=== PATIENT | female | born 1955 | race Caucasian/White ===

== ENCOUNTER 2020-08-25 12:20 | Outpatient (REF) | payer MEDICARE, BC, OTHER, SELFPAY ==
--- NOTE | 2020-08-25 12:26 | MM_ITS ---
EXAMINATION: MM SCREENING DIGITAL BREAST TOMOSYNTHESIS, BILATERAL CLINICAL INFORMATION: Screening. Asymptomatic. The lifetime risk of breast cancer based on the Tyrer-Cuzick Model is 6%. COMPARISON: Mammography: 04/23/2019, 04/08/2018, 04/03/2017 TECHNIQUE: Digital breast tomosynthesis is performed in both the craniocaudal and mediolateral oblique views along with computer-aided detection (CAD). Synthesized 2D images are generated from the tomosynthesis. FINDINGS: There are scattered areas of fibroglandular density (ACR BI-RADS breast composition Category b). There are no significant masses, abnormal calcifications, or other abnormalities. Intramammary node mid upper outer left breast and small smooth nodule central inner left breast are stable from prior studies. No developing density. No significant changes from prior exams. MM/MM tomosynthesis screening BI IMPRESSION: No mammographic evidence of malignancy. ASSESSMENT: BI-RADS 2: Benign RECOMMENDATION: Routine annual mammography screening. This patient's information was entered into a reminder system with a target due date for their next mammogram.
== END 2020-08-25 12:21 | disposition home or self-care (01) ==
LOC: HO.MAMMO 12:20
PROVIDERS: PCP Internal Medicine; Visit Provider Internal Medicine
DX: Z12.31 Encounter for screening mammogram for malignant neoplasm of breast (principal)
CPT/HCPCS: 77063; 77067

== ENCOUNTER 2021-02-21 13:02 | Outpatient (REF) | payer MEDICARE, BC, OTHER, SELFPAY ==
[2021-02-21 14:38] LABS: Anion Gap 11 (12-20); Blood Urea Nitrogen 11 mg/dL (9-16); Calcium 9.8 mg/dL (8.4-10.2); Carbon Dioxide 30 mmol/L (22-29); Chloride 102 mmol/L (96-108); Cholesterol 219 mg/dL; Estimated Glomerular Filt Rate > 60; Glucose Fasting 102 mg/dL (60-99); HDL Cholesterol 66 mg/dL; LDL Cholesterol Calculated 130 mg/dl; Potassium 4.7 mmol/L (3.3-5.1); Sodium 138 mmol/L (135-145); Triglycerides 117 mg/dL
[2021-02-21 14:47] LABS: Vitamin D 25-OH Total 32.6 ng/mL (>30)
== END 2021-02-21 13:03 | disposition home or self-care (01) ==
LOC: HO.HMGCLDS 13:02
PROVIDERS: PCP Internal Medicine; Visit Provider Internal Medicine
DX: Z01.818 Encounter for other preprocedural examination (principal); I10 Essential (primary) hypertension; Z78.0 Asymptomatic menopausal state
CPT/HCPCS: 36415; 80048; 80061; 82306

== ENCOUNTER 2021-03-06 06:20 | Day surgery (SDC) | payer MEDICARE, BC, OTHER, SELFPAY ==
[2021-02-28 09:37] VITALS: BMI 26.8
--- NOTE | 2021-03-01 16:31 | MHC.SHP ---
Pre-Procedural Eval Section A The patient is an INPATIENT: No The History & Physical has been completed within 30 days and I have reviewed it.: Yes Section B Chief Complaint: Cataract Right Eye Allergies: Allergies Allergy/AdvReac Type Severity Reaction Status Date / Time No Known Allergies Allergy Verified 02/21/21 13:03 Plan Diagnosis/Plan: Unchanged I have reviewed the history and physical and performed a pertinent physical examination on my patient. No changes have occurred unless specified.
--- NOTE | 2021-03-03 09:15 | HO.ANESPROP2 ---
Documented by User: Augustina Pollock 03/03/21 09:15 HPI - Anesthesia Eval Consult details Narrative: Right Cataract Extraction IOL Insertion PCP cleared No prev cataract on record PMFSH Active Problems Active Problems: All Active Problems (Updated 02/28/21 @ 09:37 by Irene Fuller) Lumbago syndrome (Acute) Preoperative examination (Acute) Menopause (Acute) Essential hypertension (Acute) Past Medical History Medical History Arthritis COVID-19 vaccine administered Essential hypertension Hx of renal calculi Lumbago syndrome Menopause Preoperative examination Sleep apnea Surgical History Surgical History H/O colonoscopy Hx of appendectomy Hx of lithotripsy Social History Social History Alcohol intake: current Alcohol intake frequency: holidays/special occasions only Smoking Status: Never smoker Use of substances other than those prescribed or required for medical reasons: No Are you DNR?: No Advance Directives Information Provided: No Recently lost weight without trying: No Eating poorly because of decreased appetite: No Nutrition Risks: No Nutritional Risk Meds Allergies Allergy/AdvReac Type Severity Reaction Status Date / Time No Known Allergies Allergy Verified 03/06/21 06:56 Exam Exam Date and Time: March 03, 2021 0915 Height,Weight and Vital Signs: Height 5 ft 6 in Weight 75.296 kg Assessment and Plan Assessment Anesthesia Assessment: Chart Reviewed Documented by User: Manjit Yarbrough 03/06/21 08:04 PMFSH Past Medical History Medical History Arthritis COVID-19 vaccine administered Essential hypertension Hx of renal calculi Lumbago syndrome Menopause Preoperative examination Sleep apnea Surgical History Surgical History H/O colonoscopy Hx of appendectomy Hx of lithotripsy Social History Social History (Reviewed 03/06/21 @ 08:03 by Manjit Morales Alcohol intake: current Alcohol intake frequency: holidays/special occasions only Smoking Status: Never smoker Use of substances other than those prescribed or required for medical reasons: No Are you DNR?: No Advance Directives Information Provided: No Recently lost weight without trying: No Eating poorly because of decreased appetite: No Nutrition Risks: No Nutritional Risk Meds Allergies Allergy/AdvReac Type Severity Reaction Status Date / Time No Known Allergies Allergy Verified 03/06/21 06:56 Exam Airway Mallampati Class: III Partial: Lower
[2021-03-06 06:56] VITALS: BP 129/78; PULSE 68; RESP 16; TEMP 35.9; O2SAT 99
[2021-03-06] MEDS: Tetracaine HCl/PF 0.5% Oph Sol 4 ML DROPS 1 DROP EYE-RIGHT (07:04)
[2021-03-06] MEDS: Tropicamide 1 % Ophth Sol 3 ML BTL 1 DROP EYE-RIGHT ×3 (07:05→07:13)
[2021-03-06] MEDS: Phenylephrine HCL 2.5% Oph SoL 2 ML BOTTLE 1 DROP EYE-RIGHT ×3 (07:08→07:15)
[2021-03-06] MEDS: Lactated Ringers 500 ML 50 ML IV (07:17)
--- NOTE | 2021-03-06 08:09 | HO.PNOPHT ---
Ophthalmology Procedure Procedure Date of Service: 03/06/21 Ophthalmology Viscoelastic: Healon Duet Dual Pack Pro Ophthalmology Lenses: TECNIS [id number] (21.5) Procedure Notes: PREOPERATIVE DIAGNOSIS: Decreased visual acuity right eye secondary to cataract POSTOPERATIVE DIAGNOSIS: Same PROCEDURE: Right cataract extraction with intraocular lens insertion SURGEON: Lopez Layton M.D. ANESTHESIA: Topical/MAC ESTIMATED BLOOD LOSS: None COMPLICATIONS: None After obtaining informed consent, the patient was brought to the operating room suite and placed in the supine position. After adequate sedation per anesthesia, topical drops of Tetracaine were given to the right eye. The eye was then prepped and draped in the usual sterile fashion. The operating room microscope was then positioned over the operative eye and a lid speculum placed. A paracentesis was created. Viscoelastic was then instilled into the anterior chamber. A three plane incision was then created temporally, utilizing a 2.85 mm keratome. Capsulotomy forceps were then utilized to create a circular tear capsulotomy. Hydrodissection and hydrodelineation were carried out until adequate mobilization of the nucleus occurred. Phacoemulsification was then utilized to remove the dense central nucleus followed by removal of the cortical material utilizing the automated aspiration irrigation unit. Viscoelastic was instilled into the posterior capsular bag followed by placement of a posterior chamber intraocular lens without difficulty. The residual Viscoelastic was then removed utilizing the automated IA machine. The wound was checked and found to be watertight. The patient tolerated the procedure well and the lid speculum was removed. Intracameral injection of Vigamox 0.1 mL followed by a subtenon injection of Kenalog-40 0.2 mL were administered. The patient will be seen in the a.m.
[2021-03-06 08:32] VITALS: BP 134/79; PULSE 74; RESP 16; TEMP 36.3; O2SAT 100
== END 2021-03-06 08:51 | disposition home or self-care (01) ==
PROVIDERS: PCP Internal Medicine; Visit Provider Ophthalmology
PROC: (CPT 66985; principal; 2021-03-06 08:20)
DX: H25.11 Age-related nuclear cataract, right eye (principal); H52.4 Presbyopia; I10 Essential (primary) hypertension; G47.33 Obstructive sleep apnea (adult) (pediatric); Z79.899 Other long term (current) drug therapy; Z99.89 Dependence on other enabling machines and devices
CPT/HCPCS: 66984; J2250; J3010; J3300; V2632

== ENCOUNTER 2021-03-20 06:04 | Day surgery (SDC) | payer MEDICARE, BC, OTHER, SELFPAY ==
[2021-02-28 09:39] VITALS: BMI 26.8
--- NOTE | 2021-03-16 08:35 | MHC.SHP ---
Pre-Procedural Eval Section A The patient is an INPATIENT: No The History & Physical has been completed within 30 days and I have reviewed it.: Yes Section B Chief Complaint: Cataract Left Eye Allergies: Allergies Allergy/AdvReac Type Severity Reaction Status Date / Time No Known Allergies Allergy Verified 03/06/21 06:56 Plan Diagnosis/Plan: Unchanged I have reviewed the history and physical and performed a pertinent physical examination on my patient. No changes have occurred unless specified.
--- NOTE | 2021-03-17 08:44 | HO.ANESPROP2 ---
Documented by User: Augustina Pollock 03/17/21 08:46 HPI - Anesthesia Eval Consult details Narrative: 65yo F for Left Cataract Extraction IOL Insertion PCP cleared Right eye done 03/06/21: Midaz 1, Fent 50 PMFSH Active Problems Active Problems: All Active Problems (Updated 02/28/21 @ 09:37 by Irene Fuller) Lumbago syndrome (Acute) Preoperative examination (Acute) Menopause (Acute) Essential hypertension (Acute) Past Medical History Medical History Arthritis COVID-19 vaccine administered Essential hypertension Hx of renal calculi Lumbago syndrome Menopause Preoperative examination Sleep apnea Surgical History Surgical History H/O cataract extraction H/O colonoscopy Hx of appendectomy Hx of lithotripsy Social History Social History Alcohol intake: current Alcohol intake frequency: holidays/special occasions only Smoking Status: Never smoker Use of substances other than those prescribed or required for medical reasons: No Are you DNR?: No Advance Directives Information Provided: No Recently lost weight without trying: No Eating poorly because of decreased appetite: No Nutrition Risks: No Nutritional Risk Meds Allergies Allergy/AdvReac Type Severity Reaction Status Date / Time No Known Allergies Allergy Verified 03/06/21 06:56 Exam Exam Date and Time: March 17, 2021 0844 Height,Weight and Vital Signs: Height 5 ft 6 in Weight 75.296 kg Assessment and Plan Assessment Anesthesia Assessment: Chart Reviewed Documented by User: Madelyn Tyson 03/20/21 07:38 PMFSH Past Medical History Medical History Arthritis COVID-19 vaccine administered Essential hypertension Hx of renal calculi Lumbago syndrome Menopause Preoperative examination Sleep apnea Surgical History Surgical History H/O cataract extraction H/O colonoscopy Hx of appendectomy Hx of lithotripsy Social History Social History Alcohol intake: current Alcohol intake frequency: holidays/special occasions only Smoking Status: Never smoker Use of substances other than those prescribed or required for medical reasons: No Are you DNR?: No Advance Directives Information Provided: No Recently lost weight without trying: No Eating poorly because of decreased appetite: No Nutrition Risks: No Nutritional Risk Meds Allergies Allergy/AdvReac Type Severity Reaction Status Date / Time No Known Allergies Allergy Verified 03/06/21 06:56 Exam Airway Mallampati Class: III TM Dist: >3cm Neck ROM: Limited Heart: RRR Lungs: CTA Assessment and Plan Assessment Anesthesia Assessment: Anesthesia Plan Discussed and Chart Reviewed Final Anesthetic Review NPO: Yes ASA Class: II Final Preanesthetic Review: Meds/Allgs Chart Reviewed, Consent Obtained/Reviewed and Anes Risks/Benef Reviewed Patient Risk: Intermediate Procedure Risk: Low Anesthetic Plan Anesthetic Plan: MAC: Disposition: Standard PACU
[2021-03-20 06:45] VITALS: BP 132/71; PULSE 63; RESP 16; TEMP 36.1; O2SAT 100
[2021-03-20] MEDS: Lactated Ringers 500 ML 50 ML IV (06:55)
[2021-03-20] MEDS: Tetracaine HCl/PF 0.5% Oph Sol 4 ML DROPS 1 DROP EYE-LEFT (06:56)
[2021-03-20] MEDS: Tropicamide 1 % Ophth Sol 3 ML BTL 1 DROP EYE-LEFT ×3 (06:56→07:09)
[2021-03-20] MEDS: Phenylephrine HCL 2.5% Oph SoL 2 ML BOTTLE 1 DROP EYE-LEFT ×3 (06:58→07:11)
--- NOTE | 2021-03-20 07:58 | HO.PNOPHT ---
Ophthalmology Procedure Procedure Date of Service: 03/20/21 Ophthalmology Viscoelastic: Healdillon Duet Dual Pack Pro Ophthalmology Lenses: TECLOC [id number] (21) Procedure Notes: PREOPERATIVE DIAGNOSIS: Decreased visual acuity left eye secondary to cataract POSTOPERATIVE DIAGNOSIS: Same PROCEDURE: Left cataract extraction with intraocular lens insertion SURGEON: Lopez Layton M.D. ANESTHESIA: Topical/MAC ESTIMATED BLOOD LOSS: None COMPLICATIONS: None After obtaining informed consent, the patient was brought to the operation room suite and placed in the supine position. After adequate sedation per anesthesia, topical drops of Tetracaine were given to the left eye. The eye was then prepped and draped in the usual sterile fashion. The operating room microscope was then positioned over the operative eye and a lid speculum placed. A paracentesis was created. Viscoelastic was then instilled into the anterior chamber. A three plane incision was then created temporally, utilizing a 2.85 mm keratome. Capsulotomy forceps were then utilized to create a circular tear capsulotomy. Hydrodissection and hydrodelineation were carried out until adequate mobilization of the nucleus occurred. Phacoemulsification was then utilized to remove the dense central nucleus followed by removal of the cortical material utilizing the automated aspiration irrigation unit. Viscoat elastic was instilled into the posterior capsular bag followed by placement of a posterior chamber intraocular lens without difficulty. The residual Viscoat elastic was then removed utilizing the automated IA machine. The wound was check and found to be watertight. The patient tolerated the procedure well and the lid speculum was removed. Intracameral injection of Vigamox 0.1 mL followed by a subtenon injection of Kenalog-40 0.2 mL were administered. The patient will be seen in the a.m.
[2021-03-20 08:30] VITALS: BP 130/74; PULSE 65; RESP 16; TEMP 36.3; O2SAT 100
== END 2021-03-20 08:32 | disposition home or self-care (01) ==
PROVIDERS: PCP Internal Medicine; Visit Provider Ophthalmology
PROC: (CPT 66985; principal; 2021-03-20 08:00)
DX: H25.12 Age-related nuclear cataract, left eye (principal); H52.4 Presbyopia; Z83.518 Family history of other specified eye disorder; I10 Essential (primary) hypertension; G47.33 Obstructive sleep apnea (adult) (pediatric); Z79.899 Other long term (current) drug therapy; Z99.89 Dependence on other enabling machines and devices
CPT/HCPCS: 66984; J2250; J3300; V2632

== ENCOUNTER 2021-05-22 11:40 | Outpatient (REF) | payer MEDICARE, BC, OTHER, SELFPAY ==
[2021-05-22 12:00] VITALS: BP 120/67; PULSE 67; RESP 16; TEMP 36.3; O2SAT 99; BMI 26.1
[2021-05-22 12:22] VITALS: BMI 23.7
== END 2021-05-22 11:41 | disposition home or self-care (01) ==
LOC: HO.MS 11:40
PROVIDERS: PCP Internal Medicine; Visit Provider Ophthalmology
PROC: (CPT 66821; principal; 2021-05-22 15:40)
DX: H26.492 Other secondary cataract, left eye (principal); Z96.1 Presence of intraocular lens; I10 Essential (primary) hypertension; G47.33 Obstructive sleep apnea (adult) (pediatric); M85.88 Other specified disorders of bone density and structure, other site; Z79.899 Other long term (current) drug therapy; Z99.89 Dependence on other enabling machines and devices
CPT/HCPCS: 66821

== ENCOUNTER → 2021-05-29 13:07 | Outpatient (BNVA) | payer MEDICARE, BC, OTHER, SELFPAY | PROVIDERS: PCP Internal Medicine; Visit Provider Internal Medicine | DX: G47.33 Obstructive sleep apnea (adult) (pediatric) (principal); G47.00 Insomnia, unspecified; M26.19 Other specified anomalies of jaw-cranial base relationship; I10 Essential (primary) hypertension; Z99.89 Dependence on other enabling machines and devices | CPT/HCPCS: 99212 ==

== ENCOUNTER 2021-09-12 08:16 | Outpatient (REF) | payer MEDICARE, BC, OTHER, SELFPAY ==
--- NOTE | ~2021-09-12 | MM_ITS ---
EXAMINATION: MM SCREENING DIGITAL BREAST TOMOSYNTHESIS, BILATERAL CLINICAL INFORMATION: Screening. Asymptomatic. The lifetime risk of breast cancer based on the Tyrer-Cuzick Model is 6%. COMPARISON: Mammography: 08/25/2020, 04/23/2019, 04/08/2018 TECHNIQUE: Digital breast tomosynthesis is performed in both the craniocaudal and mediolateral oblique views along with computer-aided detection (CAD). Synthesized 2D images are generated from the tomosynthesis. FINDINGS: There are scattered areas of fibroglandular density (ACR BI-RADS breast composition Category b). There are no significant masses, abnormal calcifications, or other abnormalities. Incidental intramammary node mid upper outer left breast and a small smooth nodule mid central left breast are stable. No developing density. No significant changes. MM/MM tomosynthesis screening BI IMPRESSION: No mammographic evidence of malignancy. ASSESSMENT: BI-RADS 2: Benign RECOMMENDATION: Routine annual mammography screening. This patient's information was entered into a reminder system with a target due date for their next mammogram.
== END 2021-09-12 08:17 | disposition home or self-care (01) ==
LOC: HO.MAMMO 08:16
PROVIDERS: Visit Provider Internal Medicine
DX: Z12.31 Encounter for screening mammogram for malignant neoplasm of breast (principal)
CPT/HCPCS: 77063; 77067

== ENCOUNTER 2022-01-23 09:28 | Outpatient (REF) | payer MEDICARE, OTHER, BC, SELFPAY ==
[2022-01-23 11:35] LABS: MANUAL DIFF FLAG NO
[2022-01-23 11:45] LABS: Basophils Absolute Auto 0.1 X10*3/uL (0.0-0.2); Basophils Percent Auto 0.7 % (0-2); Eosinophils Absolute Auto 0.4 X10*3/uL (0.0-0.4); Eosinophils Percent Auto 5.3 % (0-4); Hematocrit 42.4 % (37.0-47.0); Imm Gran Abs Auto 0.03 X10*3/uL (0.00-0.03); Imm Gran Pct Auto 0.4 % (0.0-0.4); Lymphocytes Percent Auto 14.2 % (20-40); Mean Corpuscular Hemoglobin 31.8 pg (27.0-33.0); Mean Corpuscular Volume 96.4 fL (80.0-98.0); Mean Platelet Volume 10.1 fL (9.4-12.3); Monocytes Absolute Auto 0.7 X10*3/uL (0.1-1.2); Monocytes Percent Auto 10.1 % (2-11); Neutrophils Absolute Auto 4.9 x10*3/uL (2.0-8.3); Neutrophils Percent Auto 69.3 % (45-73); Platelet Count 332 X10*3/uL (160-400); Red Cell Distribution Width 13.3 % (11.0-16.0)
[2022-01-23 12:15] LABS: Alanine Aminotransferase 30 U/L (0-31); Anion Gap 11 (12-20); Aspartate Amino Transferase 20 U/L (5-31); Blood Urea Nitrogen 11 mg/dL (9-16); Calcium 9.6 mg/dL (8.4-10.2); Carbon Dioxide 29 mmol/L (22-29); Chloride 105 mmol/L (96-108); Cholesterol 226 mg/dL; Estimated Glomerular Filt Rate > 60; Glucose Fasting 99 mg/dL (60-99); HDL Cholesterol 77 mg/dL; LDL Cholesterol Calculated 132 mg/dl; Potassium 4.8 mmol/L (3.3-5.1); Sodium 140 mmol/L (135-145); Triglycerides 86 mg/dL
[2022-01-23 12:16] LABS: TSH reflex Free T4 1.51 uIU/mL (0.32-4.0); Vitamin D 25-OH Total 30.8 ng/mL (>30)
== END 2022-01-23 09:29 | disposition home or self-care (01) ==
LOC: HO.HMGCLDS 09:28
PROVIDERS: Visit Provider Internal Medicine
DX: M85.88 Other specified disorders of bone density and structure, other site (principal); I10 Essential (primary) hypertension; L65.9 Nonscarring hair loss, unspecified; Z78.0 Asymptomatic menopausal state
CPT/HCPCS: 36415; 80048; 80061; 82306; 84443; 84450; 84460; 85025

== ENCOUNTER 2022-03-16 10:02 | Outpatient (REF) | payer MEDICARE, OTHER, BC, SELFPAY ==
[2022-03-16 12:03] LABS: Anion Gap 8 (12-20); Blood Urea Nitrogen 15 mg/dL (9-16); Calcium 9.4 mg/dL (8.4-10.2); Carbon Dioxide 30 mmol/L (22-29); Chloride 106 mmol/L (96-108); Estimated Glomerular Filt Rate > 60; Glucose Fasting 93 mg/dL (60-99); Potassium 4.9 mmol/L (3.3-5.1); Sodium 139 mmol/L (135-145)
[2022-03-17 12:57] LABS: Lyme Abs Screen <0.90 index
[2022-03-23 02:55] LABS: A. Phagocytophilum Ab IgG <1:64 (<1:64); A. Phagocytophilum Ab IgM <1:20 (<1:20); E. Chaffeensis Ab IgG <1:64 (<1:64); E. Chaffeensis Ab IgM <1:20 (<1:20)
== END 2022-03-16 10:03 | disposition home or self-care (01) ==
LOC: HO.HMGCLDS 10:02
PROVIDERS: Visit Provider Internal Medicine
DX: R21 Rash and other nonspecific skin eruption (principal); I10 Essential (primary) hypertension; T14.8XXA Other injury of unspecified body region, initial encounter; W57.XXXA Bitten or stung by nonvenomous insect and other nonvenomous arthropods, initial encounter
CPT/HCPCS: 36415; 80048; 86617; 86618; 86666

== ENCOUNTER 2022-04-23 09:31 | Outpatient (REF) | payer MEDICARE, BC, OTHER, SELFPAY ==
--- NOTE | ~2022-04-23 | XR_ITS ---
EXAMINATION: XR KNEE, LEFT CLINICAL INFORMATION: Pain left knee COMPARISON: None TECHNIQUE: Four views of the left knee. FINDINGS: The tricompartment joint space is maintained normal. No loose bodies or bony erosive changes seen. There is anterior superior patellar enthesophyte. No abnormal joint effusion seen. XR/XR knee LT 4V IMPRESSION: Unremarkable left knee exam.
== END 2022-04-23 09:32 | disposition home or self-care (01) ==
LOC: HO.HMGCX 09:31
PROVIDERS: Visit Provider Internal Medicine
DX: M25.562 Pain in left knee (principal)
CPT/HCPCS: 73564

== ENCOUNTER 2022-05-03 10:00 | Outpatient (RCR) | payer MEDICARE, BC, OTHER, SELFPAY ==
--- NOTE | 2022-04-27 09:58 | MHC.PT.EP ---
[facility] [place] Office [place] [facility] [place] [facility] [address] [phone] F: [phone] F: [phone] F: [phone] F: [phone] Physical Therapy Plan of Care Date of Evaluation: Date of Surgery: n/a Diagnosis: pain in L knee Assessment: Patient is a 66 year old female presenting to PT with complaints of pain in her L knee. Pt reports onset of pain began about 4 weeks ago due to twisting her knee while gardening. She presents today with impairments in pain, AROM, strength, gait mechanics. Pt's current occupation is retired, with baseline physical activities including ambulation, ADLs, stair negotiation, gardening. Pt expresses terminal carman goal of reducing pain, and is motivated to work towards this in PT. Clinical presentation today is most consistent with signs and sx associated with possible MCL sprain and pt will benefit from skilled PT to address the following problems and impairments noted upon evaluation: pain, AROM, strength, gait mechanics. These problems limit the patient with the following functional activities: ambulation, ADLs, stair negotiation, gardening. The prescribed treatment plan of care is medically necessary. Co-morbidities of HTN were identified and taken into considerations of plan of care. Pt was educated on HEP, role of PT, prognosis, POC. Frequency and Duration: The patient will be seen 2 x week x 5 weeks Short Term Goals: Pt will demonstrate L knee ROM to 135 for flexion in 3 weeks. Pt will demonstrate 5/5 L knee MMT strength in 3 weeks. Pt will demonstrate hip strength at least 4+/5 in 3 weeks. Correction Goals: Pt will demonstrate improved LEFI score by 9 points in 5 weeks for improved functional mobility. Pt will demonstrate ability to ambulate with normal mechanics and min to no pain in 5 weeks. Pt will demonstrate ability to garden with min to no pain in 5 weeks for return to PLOF. Treatment Plan: Modalities to reduce pain, spasms and effusion. Manual therapy to restore motion and function. Therapeutic exercise to improve strength and flexibility. Neuromuscular re-education for posture and balance. Therapeutic activities to return to functional activities of daily living. Electronically signed by: Mary Ann Seals, PT, DPT, ATC Please sign and return to therapist. Thank you for your referral.
--- NOTE | 2022-05-14 11:12 | MHC.PT.DC ---
[facility] [place] Office [place] Office [place] Office [address] [phone] F: [phone] F: [phone] F: [phone] F: [phone] Physical Therapy Discharge Report Diagnosis: pain in L knee Date of Surgery: n/a Date of Evaluation: 04/27/22 Date of Discharge: 05/14/22 Treatments to Date: 2 Cancellations to Date: 0 No Shows to Date: 0 Discharge Status: Patient Elected to Stop Discharge Summary: Pt self d/c from skilled PT. Called stating she feels 90% better and would not like to continue. Electronically signed by: Mary Ann Seals, PT, DPT, ATC Please sign and return to therapist. Thank you for your referral.
== END 2022-05-14 11:13 | disposition home or self-care (01) ==
LOC: HO.PTCHIC 10:00
PROVIDERS: PCP Internal Medicine; Visit Provider Internal Medicine
DX: M25.562 Pain in left knee (principal)
CPT/HCPCS: 97110; 97161

== ENCOUNTER → 2022-06-18 13:25 | Outpatient (BNVA) | payer MEDICARE, BC, OTHER, SELFPAY | PROVIDERS: PCP Internal Medicine; Visit Provider Internal Medicine | DX: G47.33 Obstructive sleep apnea (adult) (pediatric) (principal) | CPT/HCPCS: 99212 ==

== ENCOUNTER 2022-09-18 08:40 | Outpatient (REF) | payer MEDICARE, BC, OTHER, SELFPAY ==
--- NOTE | ~2022-09-18 | MM_ITS ---
EXAMINATION: MM SCREENING DIGITAL BREAST TOMOSYNTHESIS, BILATERAL CLINICAL INFORMATION: Screening. Asymptomatic. The lifetime risk of breast cancer based on the Tyrer-Cuzick Model is 6%. COMPARISON: Mammography: 09/12/2021, 08/25/2020, 04/23/2019 TECHNIQUE: Digital breast tomosynthesis is performed in both the craniocaudal and mediolateral oblique views along with computer-aided detection (CAD). Synthesized 2D images are generated from the tomosynthesis. Additional right MLO view is provided. FINDINGS: There are scattered areas of fibroglandular density (ACR BI-RADS breast composition Category b). There are no significant masses, abnormal calcifications, or other abnormalities. Parenchymal pattern is similar to prior studies. No developing density. Incidental intramammary node again seen mid upper outer left breast. No significant changes. MM/MM tomosynthesis screening BI IMPRESSION: No mammographic evidence of malignancy. ASSESSMENT: BI-RADS 2: Benign RECOMMENDATION: Routine annual mammography screening. This patient's information was entered into a reminder system with a target due date for their next mammogram.
--- NOTE | ~2022-09-18 | MM_ITS ---
EXAMINATION: BONE DENSITOMETRY CLINICAL INDICATION: Asymptomatic menopausal state. COMPARISON: Previous BD dated 04/23/2019 and baseline BD dated 11/09/2011. TECHNIQUE: Using a [employer] DXA System (software version: 13.1) manufactured by [employer], dual-energy x-ray absorptiometry was performed of the lumbar spine and left hip. The images are of good technical quality. Summary results are attached. FINDINGS: AP SPINE L1-L4: Current: BMD 0.906 g/cm2, Z-score -1.0, T-score -2.3, osteopenia, 10.9% decrease from previous, 12.7% decrease from baseline (<5% change is not significant). Prior: BMD 1.017 g/cm2. Baseline: BMD 1.038 g/cm2. LEFT FEMUR, NECK: Current: BMD 0.972 g/cm2, Z-score 0.9, T-score -0.5, normal. Prior: BMD 0.976 g/cm2. Baseline: BMD 1.026 g/cm2. LEFT FEMUR, TOTAL: Current: BMD 1.034 g/cm2, Z-score 1.3, T-score 0.2, normal, 1.6% increase from previous, 4.8% decrease from baseline (<5% change is not significant). Prior: BMD 1.018 g/cm2. Baseline: BMD 1.086 g/cm2. IDENTIFIED RISK FACTORS: Menopause. HISTORY OF FRACTURE: No insufficiency fracture reported. MEDICATIONS: Calcium supplements or multivitamin, vitamin D. MM/XR DEXA axial skeleton IMPRESSION: 1. DIAGNOSIS: Osteopenia based on the lowest T-score value of -2.3 in the lumbar spine applying World Health Organization criteria. 2. 10-YEAR FRACTURE RISK PREDICTION, FRAX: Major osteoporotic fracture (clinical spine, forearm, hip or shoulder) 7.7%. Hip fracture 0.5%. 3. Treatment Recommendations: NOF guidelines recommend consideration for treatment in postmenopausal women and men age 50 and older presenting with the following: -A hip or vertebral (clinical or morphometric) fracture. -T-score less than or equal to -2.5 at the femoral neck or spine after appropriate evaluation to exclude secondary causes. -Low bone mass at the hip or spine and a 10-year fracture probability by FRAX of greater than or equal to 3% for hip fracture or greater than or equal to 20% for major osteoporotic fracture based on the [place] adapted WHO algorithm. 4. Other Recommendations: All treatment decisions require clinical judgment and consideration of individual patient factors, including patient preferences, comorbidities, previous drug use, risk factors not captured in the FRAX model (e.g. frailty, falls, vitamin D deficiency, increased bone turnover, interval significant decline in bone density) and possible under or overestimation of fracture risk by FRAX. Additional medical evaluation for secondary cause of low bone mineral density may be appropriate. FUTURE SCAN RECOMMENDATION: People with diagnosed cases of osteoporosis or at high risk for fracture should have regular bone mineral density tests. For patients eligible for Medicare, routine testing is allowed once every 2 years. The testing frequency can be increased to one year for patients who have rapidly progressing disease, those who are receiving or discontinuing medical therapy to restore bone mass, or have additional risk factors.
== END 2022-09-18 08:41 | disposition home or self-care (01) ==
LOC: HO.MAMMO 08:40
PROVIDERS: PCP Internal Medicine; Visit Provider Internal Medicine
DX: Z12.31 Encounter for screening mammogram for malignant neoplasm of breast (principal); Z13.820 Encounter for screening for osteoporosis; Z78.0 Asymptomatic menopausal state; M85.88 Other specified disorders of bone density and structure, other site
CPT/HCPCS: 77063; 77067; 77080

== ENCOUNTER 2023-06-27 12:49 | Outpatient (AMB) | payer MEDICARE, OTHER, SELFPAY ==
[2023-06-27 13:07] VITALS: BP 108/70; PULSE 72; O2SAT 98; BMI 28.2
--- NOTE | 2023-06-27 13:07 | MHC.OFFVIS ---
Intake Vital Signs 06/27/23 13:07 Height 5 ft 6 in Weight 175 lb BMI 28.2 BP 108/70 Blood Pressure Location Lt brachial Position Sitting Pulse 72 Pulse Source Pulse Oximeter Pulse Oximetry (%) 98 Oxygen Delivery Method Room Air Intake Visit Reasons: Sleep apnea Intake Note: pt is here for follow up and states she is SHARON and states doing great and cpap is okay just case on the face. 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 Allergies No Known Allergies Allergy (Verified 06/27/23 13:33) Medication List - Last Reconciled 06/27/23 by Vianey Perez MD Bacillus coagulans (Digestive Advantage Probiotics-Prebiotic) cells PO cholecalciferol (vitamin D3) 25 mcg PO DAILY ciclopirox 8% mL topical clobetasol 0.05% topical flaxseed mg PO lisinopril 2.5 mg PO DAILY metronidazole 0.75% appl topical PRN minoxidil 5% (Rogaine) ea topical xvqlfzea-dgp-ccpj-FA-vit K-lut 8 mg iron-400 mcg-50 mcg (Centrum Silver Women) 1 tab PO DAILY tretinoin 0.025% topical BEDTIME PRN Do you need a note to return to daycare/school/sports/work: No HPI Sleep apnea HPI Details Madelyn is 67 years old very pleasant female a known case of obstructive sleep apnea, she and she is a regular user of CPAP. Comes after 1 year for her follow-up. She does use the CPAP very regularly but has some discomfort on some nights, also she has experienced some air leak and has to tighten the straps which make it more uncomfortable. She gets about 8 hours sleep per night and denies any. Daytime sleepiness She has put on some weight since last year. [facility] Medical History Arthritis Essential hypertension Hair loss disorder Hx of renal calculi Insomnia Lumbago syndrome Menopause SHARON (obstructive sleep apnea) Osteopenia of lumbar spine Sleep apnea Surgical History H/O cataract extraction H/O colonoscopy Hx of appendectomy Hx of lithotripsy S/P LASIK surgery Social History Housing: House Alcohol intake: current Alcohol intake frequency: holidays/special occasions only Patient Tobacco Use Status: Never used Tobacco e-Cigarette/Vaping Use: Never Used Second Hand Smoke Exposure: No service: No Current occupational status: retired Cognitive needs: No Hearing needs: No Vision needs: No Review of Systems Const All systems reviewed & are unremarkable except as noted in HPI and below Eyes Reports no additional complaints ENT Reports no additional complaints Card Denies chest pain, Denies irregular heart rhythm, Denies leg edema and Denies dyspnea Resp Denies cough, Denies dyspnea, Denies stridor and Denies wheezing GI Reports no additional complaints Reports no additional complaints Musc Reports arthralgias (MILD OFF AND ON) Skin/Breast Reports system reviewed and no additional complaints, except as documented Neuro Reports no additional complaints Psych Reports no additional complaints Aller/Immun Denies wheezing Physical Exam Vital Signs: Last Vital Signs Pulse 72 06/27/23 13:07 BP 108/70 06/27/23 13:07 Pulse Ox 98 06/27/23 13:07 Oxygen Delivery Method Room Air 06/27/23 13:07 BMI result Body Mass Index 28.2 Const General: healthy appearing, comfortable, no acute distress, alert and awake Orientation/consciousness: patient oriented x3 HEENT Head: Yes normal to inspection General nose exam: No nasal polyps present and No nasal discharge present Face and sinus: Yes sinuses nontender Mouth: oropharynx normal Teeth and gingiva: other (prominant Retroganthia of the lower jaw) Throat: Yes posterior oropharynx normal Eyes General: appearance normal, both eyes and all related structures Neck Neck: Yes normal visual inspection, Yes no lymphadenopathy, Yes trachea midline and Yes no JVD Thyroid: Thyroid normal Chest Chest palpation & inspection: normal inspection of the chest, normal palpation of entire chest wall and no tenderness Resp Effort & Inspection: normal respiratory effort Auscultation: clear to auscultation bilaterally, no crackles and no wheezes Cardio Palpation: normal PMI Rate: regular rate Rhythm: regular rhythm Heart sounds: no gallops and no murmurs Peripheral pulses: Peripheral pulses 2+ throughout GI Palpation (GI): Soft to palpation, nontender, No hepatosplenomegaly present and no masses Auscultation: normal bowel sounds Back/Spine/Pelvis Thoracic/Lumbar Spine: thoracic and lumbar spine normal to inspection Skin General skin exam: no rashes or lesions noted Neuro General: patient oriented x3 and no focal motor deficits Cranial nerves: Yes CN's II-XII intact bilaterally Extrem General: Yes normal to inspection, Yes no clubbing, cyanosis or edema and Yes no calf tenderness Psych Appearance: grossly normal and well kempt Speech and movement: Normal speech and movement present Results Reviewed Results Reviewed: Compliance report for the last 30 nights is reviewed. She has used 30/30 nights., 100% average use per night 8 hours and 40 minute. Pressure 10 cm. 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 SHE IS COMPLIANT. SOME AIR LEAK ISSUE IS NOTED. COMMENDED FOR GOOD COMPLIANCE AND ADVISED TO KEEP ON USING THE CPAP REGULARLY, MAKE SURE TO GET NEW MASK WITH NEW LINING REGULARLY EVERY 3 MONTHS. AND ADJUST THE STRAPS. Code(s): G47.33 - Obstructive sleep apnea (adult) (pediatric) Coding Level of Care Code Est Pt Level 3 (61024) Diagnoses SHARON (obstructive sleep apnea) G47.33
== END 2023-06-27 13:35 | disposition home or self-care (01) ==
PROVIDERS: PCP Internal Medicine; Visit Provider Internal Medicine
DX: G47.33 Obstructive sleep apnea (adult) (pediatric) (principal)
CPT/HCPCS: 99213

== ENCOUNTER → 2023-06-27 12:49 | Outpatient (BNVA) | payer MEDICARE, OTHER, SELFPAY | PROVIDERS: PCP Internal Medicine; Visit Provider Internal Medicine | DX: G47.33 Obstructive sleep apnea (adult) (pediatric) (principal); Z99.89 Dependence on other enabling machines and devices | CPT/HCPCS: 99212 ==

== ENCOUNTER 2023-07-05 08:22 | Day surgery (SDC) | payer MEDICARE, OTHER, SELFPAY ==
--- NOTE | 2023-07-04 11:54 | P.CONAN_ITS ---
Documented by User: Augustina Pollock NP 07/04/23 11:54 HPI - Anesthesia Eval Consult details Narrative: 67yo F for Colonoscopy PMFSH Active Problems Active Problems: All Active Problems (Updated 07/04/23 @ 08:14 by Ramandeep Chambers RN) Hair loss disorder (Acute) SHARON (obstructive sleep apnea) (Acute) Osteopenia of lumbar spine (Acute) Menopause (Acute) Essential hypertension (Acute) Past Medical History Medical History (Updated 07/04/23 @ 08:14 by Ramandeep Chambers RN) HTN (hypertension) Hair loss disorder Insomnia SHARON (obstructive sleep apnea) Osteopenia of lumbar spine Arthritis Sleep apnea Hx of renal calculi Lumbago syndrome Menopause Essential hypertension Surgical History Surgical History S/P LASIK surgery H/O cataract extraction Hx of lithotripsy H/O colonoscopy Hx of appendectomy Social History Social History Housing: House Alcohol intake: current Alcohol intake frequency: holidays/special occasions only Patient Tobacco Use Status: Never used Tobacco e-Cigarette/Vaping Use: Never Used Second Hand Smoke Exposure: No Use of substances other than those prescribed or required for medical reasons: No Are you DNR?: No Advance Directives: No Advance Directives Information Provided: Yes service: No Current occupational status: retired Cognitive needs: No Hearing needs: No Vision needs: No Meds Allergies Allergy/AdvReac Type Severity Reaction Status Date / Time No Known Allergies Allergy Verified 07/05/23 09:00 Home Medications Medication Instructions Recorded Confirmed Last Taken Type minoxidil 5 % topical foam ea topical 05/24/21 06/27/23 Unknown History (Rogaine) flaxseed 1,000 mg capsule mg PO 08/29/21 06/27/23 Unknown History pdexvxya-atbx-lmvq 8 mg-folic 400 1 tab PO DAILY 08/29/21 06/27/23 Unknown History mcg-K 50 mcg-lutein 300 mcg tablet (Centrum Silver Women) Bacillus coagulans 800 million cell PO 01/23/22 06/27/23 Unknown History cell tablet (Digestive Advantage Probiotics-Prebiotic) tretinoin 0.025 % topical gel topical BEDTIME PRN hair loss 01/23/22 06/27/23 Unknown History clobetasol 0.05 % lotion (Clobex) topical 03/17/22 06/27/23 Unknown History ciclopirox 8 % topical solution ml topical 04/23/22 06/27/23 Unknown History (Ciclodan) metronidazole 0.75 % topical cream appl topical DAILY PRN hair loss 06/18/22 06/27/23 Unknown History (Rosadan) cholecalciferol (vitamin D3) 25 25 mcg PO DAILY 08/30/22 06/27/23 Unknown His tory mcg (1,000 unit) capsule Exam Exam Date and Time: July 04, 2023 1154 Assessment and Plan Assessment Anesthesia Assessment: Chart Reviewed Documented by User: Manjit Yarbrough MD 07/05/23 09:24 [facility] Past Medical History Medical History (Updated 07/04/23 @ 08:14 by Ramandeep Chambers RN) HTN (hypertension) Hair loss disorder Insomnia SHARON (obstructive sleep apnea) Osteopenia of lumbar spine Arthritis Sleep apnea Hx of renal calculi Lumbago syndrome Menopause Essential hypertension Family History Family history of problems with anesthesia: No Surgical History Surgical History S/P LASIK surgery H/O cataract extraction Hx of lithotripsy H/O colonoscopy Hx of appendectomy History of Problems with Anesthesia: No Social History Social History Housing: House Alcohol intake: current Alcohol intake frequency: holidays/special occasions only Patient Tobacco Use Status: Never used Tobacco e-Cigarette/Vaping Use: Never Used Second Hand Smoke Exposure: No Use of substances other than those prescribed or required for medical reasons: No Are you DNR?: No Advance Directives: No Advance Directives Information Provided: Yes service: No Current occupational status: retired Cognitive needs: No Hearing needs: No Vision needs: No Meds Allergies Allergy/AdvReac Type Severity Reaction Status Date / Time No Known Allergies Allergy Verified 07/05/23 09:00 Home Medications Medication Instructions Recorded Confirmed Last Taken Type minoxidil 5 % topical foam ea topical 05/24/21 06/27/23 Unknown History (Rogaine) flaxseed 1,000 mg capsule mg PO 08/29/21 06/27/23 Unknown History gwkxdekw-zhgo-mjtf 8 mg-folic 400 1 tab PO DAILY 08/29/21 06/27/23 Unknown History mcg-K 50 mcg-lutein 300 mcg tablet (Centrum Silver Women) Bacillus coagulans 800 million cell PO 01/23/22 06/27/23 Unknown History cell tablet (Digestive Advantage Probiotics-Prebiotic) tretinoin 0.025 % topical gel topical BEDTIME PRN hair loss 01/23/22 06/27/23 Unknown History clobetasol 0.05 % lotion (Clobex) topical 03/17/22 06/27/23 Unknown History ciclopirox 8 % topical solution ml topical 04/23/22 06/27/23 Unknown History (Ciclodan) metronidazole 0.75 % topical cream appl topical DAILY PRN hair loss 06/18/22 06/27/23 Unknown History (Rosadan) cholecalciferol (vitamin D3) 25 25 mcg PO DAILY 08/30/22 06/27/23 Unknown History mcg (1,000 unit) capsule Exam Airway Mallampati Class: III TM Dist: >3cm Neck ROM: Full Assessment and Plan Assessment Anesthesia Assessment: Anesthesia Plan Discussed Final Anesthetic Review Family History of Problems with Anesthesia: No History of Problems with Anesthesia: No NPO: Yes ASA Class: III Final Preanesthetic Review: No Changes in Pt Med Stat, Meds/Allgs Chart Reviewed, Consent Obtained/Reviewed and Anes Risks/Benef Reviewed Patient Risk: Intermediate Procedure Risk: Low Anesthetic Plan Anesthetic Plan: MAC: Disposition: Standard PACU
[2023-07-05 09:03] VITALS: BMI 28.6
[2023-07-05 09:25] VITALS: BP 125/84; PULSE 68; RESP 15; TEMP 36.4; O2SAT 97
[2023-07-05] MEDS: Lactated Ringers 1,000 ML 100 ML IVCONT (09:31)
[2023-07-05 10:25] VITALS: BP 141/82; PULSE 68; RESP 14; TEMP 36.4; O2SAT 98
--- NOTE | 2023-07-05 10:28 | P.BOP_ITS ---
Brief Operative Note Date of Service: 07/05/23 Pre-op diagnosis: Screening Post-op diagnosis: other (Diverticulosis) Procedure: Colonoscopy to the cecum and TI Surgeon: Nasir Perez Anesthesia: MAC Was an Transportation Mechanic used for this Procedure?: No Estimated blood loss (mL): 0 Pathology: none sent Condition: stable Disposition: PACU
[2023-07-05 10:40] VITALS: BP 147/77; PULSE 65; RESP 16; O2SAT 99
--- NOTE | 2023-07-05 10:50 | OP_ITS ---
DATE OF SERVICE: 07/05/2023 SURGEON: Nasir Perez MD INDICATIONS: The patient presents for evaluation of colorectal cancer screening, personal history of tubular adenoma of the colon, and family history of colon cancer. Full consent obtained from her for this, including risks of bleeding and perforation. PREOPERATIVE DIAGNOSIS: POSTOPERATIVE DIAGNOSIS: PROCEDURE PERFORMED: Colonoscopy to cecum and terminal ileum. ESTIMATED BLOOD LOSS: COMPLICATIONS: ANESTHESIA: Medication used: Monitored anesthesia care. ASSISTANTS: SPECIMENS: PREOPERATIVE DIAGNOSES: Colorectal cancer screening, personal history of tubular adenoma of the colon, and family history of colon cancer. POSTOPERATIVE DIAGNOSES: Colorectal cancer screening, personal history of tubular adenoma of the colon, and family history of colon cancer. Diverticulosis and internal hemorrhoids. DESCRIPTION OF PROCEDURE: The patient was placed in the left lateral decubitus position. The digital rectal exam revealed no abnormalities. The Olympus video pediatric colonoscope was entered into the rectum and advanced easily to the cecum. Once in the cecum I did identify normal-appearing cecal pouch with appendiceal orifice and a normal-appearing ileocecal valve. The terminal ileum was cannulated and appeared normal. The scope was withdrawn back in the colon. The entire cecum and ileocecal valve appeared normal. The scope was slowly withdrawn assessing all mucosal surfaces carefully. Preparation was excellent. I did not visualize any sign of polyps, colitis, or angiodysplasia. There was a mild amount of sigmoid diverticulosis. In the rectum, scope was retroflexed visualizing small internal hemorrhoids, but no other pathology. The rectal mucosa appeared normal. Scope was straightened out and withdrawn from the patient. She tolerated the procedure well and was returned to the recovery area in stable condition. IMPRESSION: 1. Sigmoid diverticulosis. 2. Internal hemorrhoids. PLAN: Given her family history and previous history of tubular adenoma, I would recommend a followup colonoscopy in 5 years for further screening. She will otherwise see me on a p.r.n. basis. MD KAREN Thomas/JAYME / [phone]
[2023-07-05 10:55] VITALS: BP 152/83; PULSE 65; RESP 16; TEMP 36.2; O2SAT 100
== END 2023-07-05 11:15 | disposition home or self-care (01) ==
PROVIDERS: PCP Internal Medicine; Visit Provider Internal Medicine
PROC: 0DJD8ZZ Inspection of Lower Intestinal Tract, Via Natural or Artificial Opening Endoscopic (ICD-10-PCS; CPT 45378; principal; 2023-07-05 09:30)
DX: Z12.11 Encounter for screening for malignant neoplasm of colon (principal); Z80.0 Family history of malignant neoplasm of digestive organs; Z86.010 Personal history of colon polyps; K57.30 Diverticulosis of large intestine without perforation or abscess without bleeding; K64.8 Other hemorrhoids; I10 Essential (primary) hypertension; Z79.899 Other long term (current) drug therapy; G47.33 Obstructive sleep apnea (adult) (pediatric)
CPT/HCPCS: G0105

== ENCOUNTER 2023-09-09 09:28 | Outpatient (AMB) | payer MEDICARE, OTHER, SELFPAY ==
--- NOTE | 2023-09-09 10:58 | AM.OFFWIN_ITS ---
Intake Vital Signs 09/09/23 11:02 Weight 178 lb 2 oz BP 136/64 Blood Pressure Location Rt brachial Position Sitting Pulse 77 Pulse Source Pulse Oximeter Temp 97.9 F Temp Source Oral Pulse Oximetry (%) 98 Oxygen Delivery Method Room Air Intake Visit Reasons: EST/right leg pain(lobby) Intake Note: Patient is here today for Rt leg pain, Patient states pain started 2 wks ago. No recent injuries Patient Tobacco Use Status: Never used Tobacco Allergies No Known Allergies Allergy (Verified 09/09/23 11:26) Medication List - Last Reconciled 09/09/23 by Flo Cedeno MD Bacillus coagulans (Digestive Advantage Probiotics-Prebiotic) cells PO cholecalciferol (vitamin D3) 25 mcg PO DAILY ciclopirox 8% (Ciclodan) mL topical clobetasol 0.05% (Clobex) topical flaxseed mg PO lisinopril 2.5 mg PO DAILY metronidazole 0.75% (Rosadan) appl topical DAILY PRN minoxidil 5% (Rogaine) ea topical xpxaajaf-ter-brqx-FA-vit K-lut 8 mg iron-400 mcg-50 mcg (Centrum Silver Women) 1 tab PO DAILY tretinoin 0.025% topical BEDTIME PRN HPI EST/right leg pain(lobby) HPI Details 68-year-old female presents to the [facility] for a sick visit. Patient is complaining of pain in the right knee. Symptoms started 3 weeks ago and is slowly worsening. Does not recall exact injury or fall. Patient is not able to bear weight on the right foot all the time and is limping as she walks. She is able to climb stairs and come down stairs, but with difficulty. [facility] Medical History (Updated 07/04/23 @ 08:14 by Ramandeep Chambers RN) HTN (hypertension) Hair loss disorder Insomnia SHARON (obstructive sleep apnea) Osteopenia of lumbar spine Arthritis Sleep apnea Hx of renal calculi Lumbago syndrome Menopause Essential hypertension Surgical History S/P LASIK surgery H/O cataract extraction Hx of lithotripsy H/O colonoscopy Hx of appendectomy Social History Housing: House Alcohol intake: current Alcohol intake frequency: holidays/special occasions only Patient Tobacco Use Status: Never used Tobacco e-Cigarette/Vaping Use: Never Used Second Hand Smoke Exposure: No service: No Current occupational status: retired Cognitive needs: No Hearing needs: No Vision needs: No Physical Exam Vital Signs: Last Vital Signs Temp 97.9 F 09/09/23 11:02 Pulse 77 09/09/23 11:02 BP 136/64 09/09/23 11:02 Pulse Ox 98 09/09/23 11:02 Oxygen Delivery Method Room Air 09/09/23 11:02 Extrem Other: Right knee: Joint line tenderness on the medial side. Pain on flexion of the knee. Full extension with discomfort. Assessment & Plan Assessment & Plan (1) Sprain of right knee: Code(s): S83.91XA - Sprain of unspecified site of right knee, initial encounter Plan: X-ray images were personally reviewed by me. No fractures seen. Reassurance. Medications: New meloxicam 15 mg PO DAILY 14 tabs 0RF Coding Level of Care Code Est Pt Level 4 (64697) Diagnoses Sprain of right knee S83.91XA
[2023-09-09 11:02] VITALS: BP 136/64; PULSE 77; TEMP 36.6; O2SAT 98
== END 2023-09-09 12:07 | disposition home or self-care (01) ==
PROVIDERS: PCP Internal Medicine; Visit Provider Internal Medicine
DX: S83.91XA Sprain of unspecified site of right knee, initial encounter (principal)
CPT/HCPCS: 99214

== ENCOUNTER 2023-09-09 11:24 | Outpatient (REF) | payer MEDICARE, OTHER, SELFPAY ==
--- NOTE | ~2023-09-09 | XR_ITS ---
EXAMINATION: XR KNEE, RIGHT CLINICAL INFORMATION: Right knee sprain. COMPARISON: None available. TECHNIQUE: Four views of the right knee. FINDINGS: Alignment is anatomic. Joint spaces are maintained. Quadriceps tendon enthesophyte. No significant joint effusion. XR/XR knee RT 4V IMPRESSION: No acute abnormality.
== END 2023-09-09 11:25 | disposition home or self-care (01) ==
LOC: HO.HMGCX 11:24
PROVIDERS: PCP Internal Medicine; Visit Provider Internal Medicine
DX: S83.91XA Sprain of unspecified site of right knee, initial encounter (principal); X58.XXXA Exposure to other specified factors, initial encounter; Y93.9 Activity, unspecified; Y92.9 Unspecified place or not applicable; Y99.9 Unspecified external cause status
CPT/HCPCS: 73564

== ENCOUNTER 2023-09-27 12:37 | Outpatient (REF) | payer MEDICARE, OTHER, SELFPAY | END 2023-09-27 12:38 | disposition home or self-care (01) | LOC: HO.MAMMO 12:37 | PROVIDERS: PCP Internal Medicine; Visit Provider Internal Medicine | DX: Z12.31 Encounter for screening mammogram for malignant neoplasm of breast (principal) | CPT/HCPCS: 77063; 77067 ==

== ENCOUNTER → 2023-09-27 13:00 | Outpatient (BNV) | payer MEDICARE, OTHER, SELFPAY | PROVIDERS: PCP Internal Medicine; Visit Provider Radiology Diagnostic Radiology | DX: Z12.31 Encounter for screening mammogram for malignant neoplasm of breast (principal) | CPT/HCPCS: 77063; 77067 ==

== ENCOUNTER 2023-10-14 13:12 | Outpatient (AMB) | payer MEDICARE, OTHER, SELFPAY ==
--- NOTE | 2023-10-14 13:35 | AM.OFFVISMDC ---
Intake Vital Signs 10/14/23 13:36 Height 5 ft 6 in Weight 179 lb 6 oz BMI 28.9 BP 110/68 Blood Pressure Location Rt brachial Position Sitting Pulse 82 Pulse Source Pulse Oximeter Pulse Oximetry (%) 98 Oxygen Delivery Method Room Air Intake Visit Reasons: AWV Allergies No Known Allergies Allergy (Verified 10/14/23 14:48) Medication List - Last Reconciled 10/14/23 by Larissa Valdez MD Bacillus coagulans (Digestive Advantage Probiotics-Prebiotic) cells PO cholecalciferol (vitamin D3) 25 mcg PO DAILY ciclopirox 8% (Ciclodan) mL topical clobetasol 0.05% (Clobex) topical flaxseed mg PO lisinopril 2.5 mg PO DAILY metronidazole 0.75% (Rosadan) appl topical DAILY PRN minoxidil 5% (Rogaine) ea topical qsoizwzc-psj-xtuh-FA-vit K-lut 8 mg iron-400 mcg-50 mcg (Centrum Silver Women) 1 tab PO DAILY HPI AWV HPI Details SWV ? 68 year old lady with hypertension, osteopenia lumbar spine, obstructive sleep apnea, presents for her subsequent ? Annual Wellness Visit.? She is up-to-date with her screening mammogram done September 27, no longer gets his last Pap smear was done in 2013 with normal findings, and had a bone density scan done 09/18/2022, to be repeated next year . She had a colonoscopy done 07/05/[address] Perez with polyps removed but has history of tubular adenoma does a repeat colonoscopy is due in 2027. She is up-to-date with all her vaccinations but has not yet had her RSV vaccine. She had a normal fasting lipid panel done 01/23/2022 and fasting blood sugar check 03/16/2022. ? Medical / Social History Reviewed? Past Medical History ?Yes . ? [place] of Care / Care Team list updated ?Yes . ? Surgical/Hospitalization History ?Yes . ? Current Medications (including OTC and supplements) ?Yes . ? Family History ?Yes . ? Tobacco Control form ?Yes . ? AUDIT-C (Alcohol use) form ?Yes . ? Illicit drug use in Social History ?Yes . ? Current diagnosis of depression? ?No ? Appropriate PHQ2/PHQ9 completed ?Yes . ? Data entered by ?[employer] and reviewed by provider ? Fall Risk ? Fall History? Have you had any falls with injury in the past year? ?No . ? Have you had two or more falls in the past year? ?No . ? Fall Risk Assessment: ?No falls in the past year . ? HRA filled out by the patient, reviewed by Provider and scanned. ?SWV ? Balance? Romberg ?Yes . ? Tandem walk ?Yes . ? Walk and Turn ?Yes . ? Rise from sit to stand ?Yes . ?Vision? Corrective lens ?Yes ? Vision screen ? Up-to-date, she sees Dr. Layton yearly ?Hearing? Whisper test ?pass . ?Written Plan?Completed. See Patient Documents.? [facility] Medical History (Updated 10/14/23 @ 14:52 by Larissa Valdez MD) HTN (hypertension) Hair loss disorder Insomnia SHARON (obstructive sleep apnea) Osteopenia of lumbar spine Arthritis Sleep apnea Hx of renal calculi Lumbago syndrome Menopause Essential hypertension Surgical History S/P LASIK surgery H/O cataract extraction Hx of lithotripsy H/O colonoscopy Hx of appendectomy Social History Housing: House Alcohol intake: current Alcohol intake frequency: holidays/special occasions only Patient Tobacco Use Status: Never used Tobacco e-Cigarette/Vaping Use: Never Used Second Hand Smoke Exposure: No service: No Current occupational status: retired Cognitive needs: No Hearing needs: No Vision needs: No Questionnaire Medicare Wellness Checkup [age] What gender do you identify with?: female During the past 4 weeks, how much have you been bothered by emotional problems such as feeling anxious, depressed, irritable, sad or downhearted, and blue?: not at all During the past 4 weeks, has your physical & emotional health limited your social activities with family, friends, neighbors, or groups?: not at all During the past 4 weeks, how much bodily pain have you generally had?: very mild pain During the past 4 weeks, was someone available to help you if you needed & wanted help?: yes, some During the past 4 weeks, what was the hardest physical activity you could do for at least 2 minutes?: moderate Can you get to places out of walking distance without help? (For eg., can you travel alone on buses, taxis or drive your car?): Yes Can you go shopping for groceries or clothes without someone's help?: Yes Can you prepare your own meals?: Yes Can you do your housework without help?: Yes Because of any health problems, do you need the help of another person with your personal care needs such as eating, bathing, dressing or getting around the house?: No Can you handle your own money without help?: Yes During the past 4 weeks, how would you rate your health in general?: good During the past 4 weeks how have things been going for you?: pretty well Are you having difficulties driving your car?: no Do you always fasten your seat belt when you are in a car?: yes, usually During past 4 weeks, have you been bothered by the following: never: Falling or dizzy when standing up, Trouble eating well?, Teeth or denture problems? and Problems using the telephone? and sometimes: Tiredness or fatigue? Have you fallen 2 or more times in the past year?: No Are you afraid of falling?: No During the past 4 weeks, how many drinks of wine, beer, or other alcoholic beverages did you have?: 2-5 drinks per week Have you been given information to help with the following?: no: Hazards in your house that might hurt you? and no: Keeping track of your medications? How often do you have trouble taking medicines the way you have been told to take them?: I always take medicine as prescribed How confident are you that you can control & manage most of your health problems?: very confident What is your race?: White Mini Mental State Exam (MMSE) Orientation What is the (year) (season) (date) (day) (month)?: year (2022), season (Fall), date (10/14/2023), day (Saturday) and month (September) Where are we (state) (county) (town or city) (hospital) (floor)?: state ([place]), [facility] ([place]), town or city ([place]) and hospital/clinic ([facility]) Score Score: 9 Activity of Daily Living Bathing - sponge bath, tub bath or shower: receives no assistance (gets in/out by self, if usual bathing means Dressing - getting clothes from closets & drawers, including inner/outer garments & fasteners.: gets clothes & gets completely dressed without help Toileting - going to the 'toilet room' for urine/bowel elimination & cleaning self/arranging clothes: goes to toilet room, cleans self, arranges clothes without help Transfer: moves in & out of bed and chair without help (may use support object) Continence: controls urination/bowel movements completely by self Feeding: feeds self without help Total Score: 0 Information obtained from: patient Using telephone: independent Traveling: independent Shopping: independent Preparing meals: independent Housework: independent Taking medicine: independent Managing money: independent PHQ-9 Over the last 2 weeks, how often have you been bothered by any of the following problems? 1. Little interest or pleasure in doing things: not at all 2. Feeling down, depressed, or hopeless: not at all 3. Trouble falling or staying asleep, or sleeping too much: several days 4. Feeling tired or having little energy: several days 5. Poor appetite or overeating: not at all 6. Feeling bad about yourself - or that you are a failure or have let yourself or your family down: not at all 7. Trouble concentrating on things, such as reading the newspaper or watching television: not at all 8. Moving or speaking so slowly that other people could have noticed. Or the opposite - being so fidgety or restless that you have been moving around a lot more than usual: not at all 9. Thoughts that you would be better off or of hurting yourself in some way: not at all Total score: 2 Depression Screening Interpretation: Negative Depression Screening Done: Yes 88900 - PHQ-9 Billing: Yes Source: Developed by Drs. Nasir Horton, Simona Damon, Domenico Mcintosh and colleagues, with an educational rai from [employer]. Physical Exam Vital Signs: Last Vital Signs Pulse 82 10/14/23 13:36 BP 110/68 10/14/23 13:36 Pulse Ox 98 10/14/23 13:36 Oxygen Delivery Method Room Air 10/14/23 13:36 BMI result Body Mass Index 28.9 Assessment & Plan Assessment & Plan (1) Encounter for subsequent annual wellness visit (AWV) in Medicare patient: Code(s): Z00.00 - Encounter for general adult medical examination without abnormal findings Plan: Medicare wellness visit checklist reviewed, discussed with patient and updated. An updated MOLST form was completed today, has an healthcare proxy at form already completed will bring to next visit. (2) Essential hypertension: Code(s): I10 - Essential (primary) hypertension Plan: Blood pressure at goal of less than 130/80. Continue with current medication. Reinforced importance of following a low sodium diet, getting regular exercise, and lowering stress levels. (3) Osteopenia of lumbar spine: Comment: Last bone density 2019 Code(s): M85.88 - Other specified disorders of bone density and structure, other site Plan: Continue with regular weight-bearing exercise, does [facility] a [facility] the [facility], and balance exercises well. 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 SHE IS COMPLIANT. SOME AIR LEAK ISSUE IS NOTED. COMMENDED FOR GOOD COMPLIANCE AND ADVISED TO KEEP ON USING THE CPAP REGULARLY, MAKE SURE TO GET NEW MASK WITH NEW LINING REGULARLY EVERY 3 MONTHS. AND ADJUST THE STRAPS. Code(s): G47.33 - Obstructive sleep apnea (adult) (pediatric) Plan: Followed by Pulmonary, currently on CPAP Quality Reporting (2019) Depression/Bipolar (159/160/161/177) PHQ-9: Total score: 2 Coding Level of Care Code Medicare Subsequent (G0439) Diagnoses Encounter for subsequent annual wellness visit (AWV) in Medicare patient Z00.00 Essential hypertension I10 Osteopenia of lumbar spine M85.88 SHARON (obstructive sleep apnea) G47.33 Advance Care Planning Advance Care Planning discussion: Completed/Scanned Date of discussion: 10/14/23 Who was present: Patient Forms completed: ROSIE
[2023-10-14 13:36] VITALS: BP 110/68; PULSE 82; O2SAT 98; BMI 28.9
== END 2023-10-14 14:36 | disposition home or self-care (01) ==
PROVIDERS: PCP Internal Medicine; Visit Provider Internal Medicine
DX: Z00.00 Encounter for general adult medical examination without abnormal findings (principal); I10 Essential (primary) hypertension; M85.88 Other specified disorders of bone density and structure, other site; G47.33 Obstructive sleep apnea (adult) (pediatric)
CPT/HCPCS: G0439

== ENCOUNTER 2024-03-09 09:23 | Outpatient (REF) | payer MEDICARE, OTHER, SELFPAY ==
[2024-03-09 14:07] LABS: Alanine Aminotransferase 21 U/L (0-31); Anion Gap 16 (12-20); Aspartate Amino Transferase 19 U/L (5-31); Blood Urea Nitrogen 16 mg/dL (9-16); Calcium 9.4 mg/dL (8.4-10.2); Carbon Dioxide 25 mmol/L (22-29); Chloride 104 mmol/L (96-108); Cholesterol 191 mg/dL (<200); Estimated Glomerular Filt Rate > 60; Glucose Fasting 92 mg/dL (60-99); HDL Cholesterol 54 mg/dL (>40); LDL Cholesterol Calculated 114 mg/dL (<100); Potassium 4.6 mmol/L (3.3-5.1); Sodium 140 mmol/L (135-145); Triglycerides 115 mg/dL (<150)
[2024-03-09 14:24] LABS: Vitamin D 25-OH Total 41.7 ng/mL (>30)
== END 2024-03-09 09:24 | disposition home or self-care (01) ==
LOC: HO.HMGCLDS 09:23
PROVIDERS: PCP Internal Medicine; Visit Provider Internal Medicine
DX: M85.88 Other specified disorders of bone density and structure, other site (principal); I10 Essential (primary) hypertension; E89.40 Asymptomatic postprocedural ovarian failure
CPT/HCPCS: 36415; 80048; 80061; 82306; 84450; 84460

== ENCOUNTER 2024-03-16 12:54 | Outpatient (AMB) | payer MEDICARE, OTHER, SELFPAY ==
[2024-03-16 12:56] VITALS: BP 132/80; PULSE 82; O2SAT 98; BMI 29.7
--- NOTE | 2024-03-16 12:56 | A.OFFPC_ITS ---
Vital Signs 03/16/24 12:56 Height 5 ft 6 in Weight 184 lb BMI 29.7 BP 132/80 Blood Pressure Location Lt brachial Position Sitting Pulse 82 Pulse Source Pulse Oximeter Pulse Oximetry (%) 98 Oxygen Delivery Method Room Air Intake Visit Reasons: 5 month fu Intake Note: Pt is here today for her 5 mo. f/u Allergies No Known Allergies Allergy (Verified 03/16/24 13:22) Medication List - Last Reconciled 03/16/24 by Larissa Valdez MD Bacillus coagulans (Digestive Advantage Probiotics-Prebiotic) cells PO cholecalciferol (vitamin D3) 25 mcg PO DAILY ciclopirox 8% (Ciclodan) mL topical clobetasol 0.05% (Clobex) topical flaxseed mg PO lisinopril 2.5 mg PO DAILY metronidazole 0.75% (Rosadan) appl topical DAILY PRN minoxidil 5% (Rogaine) ea topical vligjaaz-eif-gmaa-FA-vit K-lut 8 mg iron-400 mcg-50 mcg (Centrum Silver Women) 1 tab PO DAILY Tobacco use date assessed: 03/16/24 Fall risk assessment: 1 Fall in past year Last assessed Fall Risk: 03/16/24 Dental Screening Dental Screen Date: 03/16/24 Did you have a dental visit in the last 12 months?: Yes Did you have a dental problem in the last 6 months where you did not have access to dental care?: No Was dental information given to patient?: Patient has dentist HPI 5 month fu HPI Details 68-year-old lady with hypertension, here today for follow-up. She has compliant with taking her medications, and following recommended diet but has not been able to exercise much due to pain in her right knee. Patient states that she sprained it approximately 6 months ago and still has not healed completely. Still having pain on anterior and medial aspect of right knee joint on walking or standing for extended periods of time. X-ray of in her right knee came back with negative findings. Has been doing exercises for her knee and taking Tylenol and applying lidocaine patches which affords only temporary relief. [facility] Medical History (Updated 03/16/24 @ 13:28 by Larissa Valdez MD) Chronic pain of right knee HTN (hypertension) Hair loss disorder Insomnia SHARON (obstructive sleep apnea) Osteopenia of lumbar spine Arthritis Sleep apnea Hx of renal calculi Lumbago syndrome Menopause Essential hypertension Surgical History S/P LASIK surgery H/O cataract extraction Hx of lithotripsy H/O colonoscopy Hx of appendectomy Social History Housing: House Alcohol intake: current Alcohol intake frequency: holidays/special occasions only Patient Tobacco Use Status: Never used Tobacco e-Cigarette/Vaping Use: Never Used Second Hand Smoke Exposure: No service: No Current occupational status: retired Cognitive needs: No Hearing needs: No Vision needs: No Questionnaire PHQ-9 Over the last 2 weeks, how often have you been bothered by any of the following problems? 1. Little interest or pleasure in doing things: not at all 2. Feeling down, depressed, or hopeless: not at all 3. Trouble falling or staying asleep, or sleeping too much: several days 4. Feeling tired or having little energy: several days 5. Poor appetite or overeating: not at all 6. Feeling bad about yourself - or that you are a failure or have let yourself or your family down: not at all 7. Trouble concentrating on things, such as reading the newspaper or watching television: not at all 8. Moving or speaking so slowly that other people could have noticed. Or the opposite - being so fidgety or restless that you have been moving around a lot more than usual: not at all 9. Thoughts that you would be better off or of hurting yourself in some way: not at all Total score: 2 Depression Screening Interpretation: Negative Depression Screening Done: Yes 40031 - PHQ-9 Billing: Yes Source: Developed by Drs. Nasir Horton, Simona Damon, Domenico Mcintosh and colleagues, with an educational rai from [employer] Thrive Questionnaire Date Thrive assessed: 03/16/24 I am a: Patient What is your living situation today?: I have a steady place to live Within the past 12 months, did the food you bought not last and you didn't have the money to get more?: Never true Within the past 12 months, did you worry whether your food would run out before you got money to buy more?: Never true Do you have trouble paying for medicines?: No Do you have trouble getting transportation to medical appointments?: No Do you have trouble paying your heating and electricity bill?: No Do you have trouble taking care of your child, family member or friend?: No Do you have trouble with day-to-day activities such as bathing, preparing meals, shopping, managing finances, etc.?: No Are you currently unemployed and looking for a job?: No Are you interested in more education?: No THRIVE Score: 0 AUDIT C Alcohol Use Questionnaire (AUDIT-C) 1. How often do you have a drink containing alcohol?: Monthly or less 2. How many drinks containing alcohol do you have on a typical day when you are drinking?: 1 or 2 3. How often do you have six or more drinks on one occasion?: Never Total Score: 1 TAMIR-7 AMB Questionnaire TAMIR-7 Date TAMIR - 7 assessed: 03/16/24 Feeling nervous, anxious, or on edge: 0 = Not at all Not being able to stop or control worryin = Not at all Worrying too much about different things: 0 = Not at all Trouble relaxin = Not at all Being so restless that it is hard to sit still: 0 = Not at all Becoming easily annoyed or irritable: 0 = Not at all Feeling afraid as if something awful might happen: 0 = Not at all Total TAMIR-7 score (0-4 normal; 5-9 mild; 10-14 moderate; 15-21 severe): 0 Source: Developed by Drs. Nasir Horton, Simona Damon, Domenico Mcintosh and colleagues, with an educational rai from [employer] TAMIR-7 Assessment Billing TAMIR-7 Assessment Tool: TAMIR-7 Assessment 25457 Review of Systems Const All systems reviewed & are unremarkable except as noted in HPI and below Eyes Reports no additional complaints ENT Reports no additional complaints Card Denies chest pain, Denies irregular heart rhythm, Denies leg edema and Denies dyspnea Resp Denies cough, Denies dyspnea, Denies stridor and Denies wheezing GI Reports no additional complaints Reports no additional complaints Musc Reports as per HPI Skin/Breast Reports system reviewed and no additional complaints, except as documented Neuro Reports no additional complaints Psych Reports no additional complaints Aller/Immun Denies wheezing Physical exam (Primary Care) Vital Signs: Last Vital Signs Pulse 82 03/16/24 12:56 BP 132/80 03/16/24 12:56 Pulse Ox 98 03/16/24 12:56 Oxygen Delivery Method Room Air 03/16/24 12:56 BMI result Body Mass Index 29.7 Tobacco/Smoking Status: Tobacco use Status Tobacco use date assessed 03/16/24 03/16/24 13:03 Patient Tobacco Use Status Never used Tobacco 03/16/24 12:57 e-Cigarette/Vaping Use Never Used 03/16/24 12:57 PHQ-9: PHQ-9 Score PHQ-9: Total score 2 03/16/24 13:20 Depression Screening Interpretation: Negative Thrive Assessment: Date of Thrive Assessment Date Thrive assessed 03/16/24 03/16/24 13:05 Const Other: Alert oriented x3, no acute distress noted ambulatory with a slight limp favori ng the right leg Orientation/consciousness: patient oriented x3 HENMT Face and sinus: Yes sinuses nontender and Yes face symmetric Mouth: Normal oral and palatal mucosa present, oropharynx normal and moist mucous membranes Neck Neck: Yes full ROM, Yes no lymphadenopathy and Yes supple Thyroid: Thyroid normal Resp Auscultation: clear to auscultation bilaterally Cardio Other: S1-S2 present regular rate and rhythm GI Other: Normal bowel sounds, soft, nontender, no mass palpated Skin General skin exam: no rashes or lesions noted Neuro General: patient oriented x3, moves all extremities and no focal motor deficits Extrem Other: Slight swelling noted over anteromedial aspect of right knee joint, with tenderness on palpation over the said area, there is pain on abduction and flexion of right lrg Results Reviewed Results Reviewed: Name: Madelyn Graham Age/Sex: 68/F : 1955 Unit#: [id number] Attend Dr: Larissa Valdez MD Re03/09/24 Status: DEP [facility] Dis[facility]: SPEC : [id number] THERESA: 03/09/24 STATUS: COMP REQ : [id number] RECD: 03/09/24-[address]: Larissa Valdez MD COMP: 03/09/24-4734 ENTERED: 03/09/24-[address] [facility] [address]: ORDERED: Met Prof Fast, AST, ALT, Lipid Panel, Vitamin D 25-OH Test Result Flag Reference Sodium 140 135-145 mmol/L Potassium 4.6 3.3-5.1 mmol/L CL 104 96-108 mmol/L CO2 25 22-29 mmol/L Gap 16 12-20 BUN 16 9-16 mg/dL Creat 0.74 0.5-1.4 mg/dL EGFR > 60 NOTE: For -Honduran individuals, multiply the result by 1.210. Chronic Kidney Disease: Estimated GFR < 60 mL/min/1.73m2 Severe Kidney Disease: Estimated GFR < 15 mL/min/1.73m2 FBS 92 60-99 mg/dL CA 9.4 8.4-10.2 mg/dL AST (GOT) 19 5-31 U/L ALT (GPT) 21 0-31 U/L Triglyceride 115 <150 mg/dL Desirable Triglyceride: less than 150 mg/dL Borderline High Triglyceride 150-199 mg/dL High Triglyceride: 200-499 mg/dL Very High Triglyceride: greater than or equal to 5OO mg/dL Cholesterol 191 <200 mg/dL Desirable Cholesterol: less than 200 mg/dL Borderline High Cholesterol: 200-239 mg/dL High Cholesterol: greater than 239 mg/dL LDL Calculated 114 H <100 mg/dL Desirable LDL: less than 100 mg/dL Near Optimal/Above Optimal LDL: 110-129 mg/dL Borderline High LDL: 130-159 mg/dL High LDL: 160-189 mg/dL Very High LDL: greater than or equal to 190 mg/dL HDL 54 >40 mg/dL Desirable HDL: greater than 40 mg/dL Note: This HDL assay may give artificially low results in patients with liver disease. Vit D 25-OH Tot 41.7 >30 ng/mL Health Based Reference Values* < 20 ng/mL Deficient 20-30 ng/mL Insufficient > 30 ng/mL Sufficient Assessment and Plan Assessment & Plan (1) Chronic pain of right knee: Code(s): M25.561 - Pain in right knee; G89.29 - Other chronic pain Plan: No improvement with conservative measures, will order MRI of right knee joint (2) Essential hypertension: Code(s): I10 - Essential (primary) hypertension Plan: Blood pressure at goal of less than 130/80. Continue with lisinopril 2.5 mg once a day Reinforced importance of following a low sodium diet, getting regular exercise, and lowering stress levels. Orders: Orders MR knee RT wo con Today M25.561 - Pain in right knee Medications: Refilled lisinopril 2.5 mg PO DAILY 90 tabs 3RF I10 - Essential (primary) hypertension Coding Level of Care Code Est Pt Level 4 (17445) Diagnoses Chronic pain of right knee M25.561; G89.29 Essential hypertension I10 Additional Codes TAMIR-7 Assessment Billing - TAMIR-7 Assessment Tool: TAMIR-7 Assessment 54692 ([id number])
== END 2024-03-16 15:10 | disposition home or self-care (01) ==
PROVIDERS: PCP Internal Medicine; Visit Provider Internal Medicine
DX: M25.561 Pain in right knee (principal); G89.29 Other chronic pain; I10 Essential (primary) hypertension
CPT/HCPCS: 99214

== ENCOUNTER 2024-04-13 17:57 | Outpatient (REF) | payer MEDICARE, OTHER, SELFPAY ==
--- NOTE | ~2024-04-13 | MR_ITS ---
EXAMINATION: MR KNEE WITHOUT CONTRAST, RIGHT CLINICAL INFORMATION: Right knee pain. Difficulty with ambulation. Failed conservative management. COMPARISON: Right knee radiographs dated 09/09/2023. TECHNIQUE: MRI of the knee without contrast was performed using routine sequences on a high-field scanner. FINDINGS: MENISCI: Medial Meniscus: Nondisplaced oblique inner margin tear of the posterior horn. Lateral Meniscus: Heterogeneity throughout the anterior horn/root, consistent with complex tearing. Tearing extends to the femoral articular surface of the anterior horn. Oblique inner margin tear of the meniscal body, which is slightly laterally extruded. Significant attenuation and irregularity of the posterior horn/root, consistent complex tearing. LIGAMENTS: Cruciate: Intact Collateral: Edema adjacent to the medial collateral ligament consistent with acute grade 1 sprain/partial tear. Intact fibular collateral ligament. EXTENSOR MECHANISM: Superior patellar enthesophytes. Intact quadriceps and patellar tendons. Normal patellofemoral alignment. ARTICULAR CARTILAGE/BONE: Patellofemoral Compartment: Mild medial and lateral patellar facet articular cartilage signal heterogeneity. Inferior central trochlea signal heterogeneity with partial-thickness loss extending to the medial trochlea. Tiny marginal osteophytes. Medial Compartment: Minimal articular cartilage signal heterogeneity with tiny marginal osteophytes. Lateral Compartment: Posterior lateral tibial plateau full-thickness articular cartilage fissuring with underlying subchondral cystic change and marrow edema. Weightbearing lateral femoral condyle signal heterogeneity and surface regularly. Tiny marginal osteophytes. JOINT FLUID AND BURSAE: Oguvv-xz-wjuawekh joint effusion and trace Galloway's cyst with mild synovitis. MR/MR knee RT wo con IMPRESSION: 1. Nondisplaced oblique inner margin tear of the medial meniscus posterior horn. 2. Complex tearing of the lateral meniscus anterior horn/root with extension to the femoral articular surface of the anterior horn. Oblique inner margin tearing of the meniscal body which is slightly laterally extruded. Complex tearing of the posterior horn/root. 3. Probable grade 1 sprain/partial tear of the medial collateral ligament. 4. Mild tricompartmental osteoarthritis. Xejuw-kd-hpfqzfty joint effusion and trace Galloway's cyst with mild synovitis.
== END 2024-04-13 17:58 | disposition home or self-care (01) ==
LOC: HO.MRI 17:57
PROVIDERS: PCP Internal Medicine; Visit Provider Internal Medicine
DX: M25.561 Pain in right knee (principal)
CPT/HCPCS: 73721

== ENCOUNTER 2024-05-07 13:35 | Outpatient (AMB) | payer MEDICARE, OTHER, SELFPAY ==
[2024-05-07 13:44] VITALS: BP 102/72; PULSE 73; O2SAT 99; BMI 29.4
--- NOTE | 2024-05-07 13:44 | MHC.OFFVIS ---
Vital Signs 05/07/24 13:44 Height 5 ft 6 in Weight 181 lb 14.102 oz BMI 29.4 BP 102/72 Blood Pressure Location Lt brachial Position Sitting Pulse 73 Pulse Source Pulse Oximeter Pulse Oximetry (%) 99 Oxygen Delivery Method Room Air Intake Visit Reasons: sleep apnea Intake Note: pt is here for follow up and states she is doing well with cpap. Director Hris Required: No Allergies No Known Allergies Allergy (Verified 05/07/24 13:54) Medication List - Last Reconciled 05/07/24 by Vianey Perez MD Bacillus coagulans (Digestive Advantage Probiotics-Prebiotic) cells PO cholecalciferol (vitamin D3) 25 mcg PO DAILY ciclopirox 8% (Ciclodan) mL topical clobetasol 0.05% (Clobex) topical flaxseed mg PO lisinopril 2.5 mg PO DAILY metronidazole 0.75% (Rosadan) appl topical DAILY PRN minoxidil 5% (Rogaine) ea topical blnktxoi-pkx-amcb-FA-vit K-lut 8 mg iron-400 mcg-50 mcg (Centrum Silver Women) 1 tab PO DAILY Do you need a note to return to daycare/school/sports/work: No HPI HPI sleep apnea: Details: THIS 68 YEARS OLD VERY PLEASANT FEMALE IS HERE FOR YEARLY FOLLOW-UP FOR HER SLEEP APNEA. USE A KNOWN CASE OF OBSTRUCTIVE SLEEP APNEA AND HAS BEEN USING CPAP FOR QUITE MANY YEARS. CURRENT CPAP MACHINE IS MORE THAN 5 YEARS OLD BUT IT IS WORKING OKAY. SHE IS ONLY SLIGHTLY OVERWEIGHT. 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 SHE CONTINUES TO HAVE SLIGHT AIR LEAK ISSUE BUT IT DOES NOT BOTHER HER DURING THE SLEEP. [facility] Medical History Tear of medial collateral ligament of right knee Tear of lateral meniscus of right knee Tear of medial meniscus of right knee Chronic pain of right knee HTN (hypertension) Hair loss disorder Insomnia SHARON (obstructive sleep apnea) Osteopenia of lumbar spine Arthritis Sleep apnea Hx of renal calculi Lumbago syndrome Menopause Essential hypertension Surgical History S/P LASIK surgery H/O cataract extraction Hx of lithotripsy H/O colonoscopy Hx of appendectomy Social History Housing: House Alcohol intake: current Alcohol intake frequency: holidays/special occasions only Patient Tobacco Use Status: Never used Tobacco e-Cigarette/Vaping Use: Never Used Second Hand Smoke Exposure: No service: No Current occupational status: retired Cognitive needs: No Hearing needs: No Vision needs: No Review of Systems Const All systems reviewed & are unremarkable except as noted in HPI and below Eyes Reports no additional complaints ENT Reports no additional complaints Card Denies chest pain, Denies irregular heart rhythm, Denies leg edema and Denies dyspnea Resp Denies cough, Denies dyspnea, Denies stridor and Denies wheezing GI Reports no additional complaints Reports no additional complaints Musc Reports arthralgias (MILD OFF AND ON) Skin/Breast Reports system reviewed and no additional complaints, except as documented Neuro Reports no additional complaints Psych Reports no additional complaints Aller/Immun Denies wheezing Physical Exam Vital Signs: Last Vital Signs Pulse 73 05/07/24 13:44 BP 102/72 05/07/24 13:44 Pulse Ox 99 05/07/24 13:44 Oxygen Delivery Method Room Air 05/07/24 13:44 BMI result Body Mass Index 29.4 Const General: healthy appearing, comfortable, no acute distress, alert and awake Orientation/consciousness: patient oriented x3 HEENT Head: Yes normal to inspection General nose exam: No nasal polyps present and No nasal discharge present Face and sinus: Yes sinuses nontender Mouth: oropharynx normal Teeth and gingiva: other (prominant Retroganthia of the lower jaw) Throat: Yes posterior oropharynx normal Eyes General: appearance normal, both eyes and all related structures Neck Neck: Yes normal visual inspection, Yes no lymphadenopathy, Yes trachea midline and Yes no JVD Thyroid: Thyroid normal Chest Chest palpation & inspection: normal inspection of the chest, normal palpation of entire chest wall and no tenderness Resp Effort & Inspection: normal respiratory effort Auscultation: clear to auscultation bilaterally, no crackles and no wheezes Cardio Palpation: normal PMI Rate: regular rate Rhythm: regular rhythm Heart sounds: no gallops and no murmurs Peripheral pulses: Peripheral pulses 2+ throughout GI Palpation (GI): Soft to palpation, nontender, No hepatosplenomegaly present and no masses Auscultation: normal bowel sounds Back/Spine/Pelvis Thoracic/Lumbar Spine: thoracic and lumbar spine normal to inspection Skin General skin exam: no rashes or lesions noted Neuro General: patient oriented x3 and no focal motor deficits Cranial nerves: Yes CN's II-XII intact bilaterally Extrem General: Yes normal to inspection, Yes no clubbing, cyanosis or edema and Yes no calf tenderness Psych Appearance: grossly normal and well kempt Speech and movement: Normal speech and movement present Results Reviewed Results Reviewed: COMPLIANCE REPORT FOR THE LAST 30 NIGHTS IS REVIEWED, SHE HAS USED 30/30 NIGHTS, 100%. AVERAGE USE IT PER NIGHT 8 HOURS. .THERE IS ONLY SLIGHT AIR LEAK RESIDUAL AHI 2.1. 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 SHE IS VERY OMPLIANT. SOME AIR LEAK ISSUE IS NOTED. Code(s): G47.33 - Obstructive sleep apnea (adult) (pediatric) Category: Medical Plan: COMMENDED FOR GOOD COMPLIANCE. ADVISED TO CONTINUE USING THE CPAP EVERY NIGHT. EVEN THOUGH SHE DOES HAVE SLIGHT AIR LEAK, IT IS NOT RESULTING IN ANY ADVERSE ISSUES. TALKED ABOUT GETTING A NEW CPAP MACHINE. HOWEVER HER CURRENT CPAP MACHINE IS WORKING FINE WITHOUT ANY PROBLEM AND I EXPLAINED TO HER THAT THERE WILL BE NO NEED TO GET A NEW DEVICE, HOWEVER IF THE CURRENT DEVICE START GIVING ANY PROBLEM THEN WE WILL DEFINITELY CONSIDER ORDERING A NEW MACHINE. Coding Level of Care Code Est Pt Level 3 (57769) Diagnoses SHARON (obstructive sleep apnea) G47.33
== END 2024-05-07 14:04 | disposition home or self-care (01) ==
PROVIDERS: PCP Internal Medicine; Visit Provider Internal Medicine
DX: G47.33 Obstructive sleep apnea (adult) (pediatric) (principal)
CPT/HCPCS: 99213

== ENCOUNTER → 2024-05-07 13:35 | Outpatient (BNVA) | payer MEDICARE, OTHER, SELFPAY | PROVIDERS: PCP Internal Medicine; Visit Provider Internal Medicine | DX: G47.33 Obstructive sleep apnea (adult) (pediatric) (principal) | CPT/HCPCS: 99212 ==

== ENCOUNTER 2024-06-01 12:56 | Outpatient (AMB) | payer MEDICARE, OTHER, SELFPAY ==
--- NOTE | 2024-06-01 13:01 | MHC.OFFVIS ---
Intake Visit Reasons: STRAW BALER-Right knee pain, no injury Intake Note: Madelyn is a 68 yo female who presents today as a new patient for a evaluation of her left knee injury. Patient reports her pain was going on for 8 months. She mentions that her pain was all over her knee and couldn't put full weight on it. She states that her pain has gotten better after going to a fitness classes. Allergies No Known Allergies Allergy (Verified 05/07/24 13:54) HPI HPI STRAW BALER-Right knee pain, no injury: Details: Patient is a 68-year-old female who presents for evaluation of right knee pain, MRI done on 04/13/2024. The patient reports there was no particular injury or incident that caused this pain to start. MRI of the right knee demonstrated MCL sprain or grade 1 tear, with associated medial and lateral meniscus tears in the right knee. Today, the patient reports that she is experiencing no pain or discomfort, and that her exercise classes she has taken at the [facility] has helped her tremendously with her pain management and range of motion. The patient reports no difficulty with ambulating, difficulty using stairs, or locking and catching of the right knee, all of which she was experiencing prior to MRI. [facility] Medical History Tear of medial collateral ligament of right knee Tear of lateral meniscus of right knee Tear of medial meniscus of right knee Chronic pain of right knee HTN (hypertension) Hair loss disorder Insomnia SHARON (obstructive sleep apnea) Osteopenia of lumbar spine Arthritis Sleep apnea Hx of renal calculi Lumbago syndrome Menopause Essential hypertension Surgical History S/P LASIK surgery H/O cataract extraction Hx of lithotripsy H/O colonoscopy Hx of appendectomy Social History Housing: House Alcohol intake: current Alcohol intake frequency: holidays/special occasions only Patient Tobacco Use Status: Never used Tobacco e-Cigarette/Vaping Use: Never Used Second Hand Smoke Exposure: No service: No Current occupational status: retired Cognitive needs: No Hearing needs: No Vision needs: No Review of Systems Const All systems reviewed & are unremarkable except as noted in HPI and below Physical Exam Extrem Other: Patient's right knee normal to inspection. No erythema, ecchymosis, or superficial wounds noted. Active and passive range of motion full and intact. No medial or lateral joint line tenderness. Negative Issac's test. No ligamentous laxity noted. Negative patellar grind. Distal sensation intact Capillary refill brisk Results Reviewed Results Reviewed: IMPRESSION: 1. Nondisplaced oblique inner margin tear of the medial meniscus posterior horn. 2. Complex tearing of the lateral meniscus anterior horn/root with extension to the femoral articular surface of the anterior horn. Oblique inner margin tearing of the meniscal body which is slightly laterally extruded. Complex tearing of the posterior horn/root. 3. Probable grade 1 sprain/partial tear of the medial collateral ligament. 4. Mild tricompartmental osteoarthritis. Czzzh-ga-xyafpnaj joint effusion and trace Galloway's cyst with mild synovitis. I reviewed the images taken on 04/13/2024 and agree with the radiologist's interpretation. Assessment & Plan Assessment & Plan (1) Tear of medial collateral ligament of right knee: Code(s): S83.411A - Sprain of medial collateral ligament of right knee, initial encounter Category: Medical (2) Tear of lateral meniscus of right knee: Code(s): S83.281A - Other tear of lateral meniscus, current injury, right knee, initial encounter Category: Medical (3) Tear of medial meniscus of right knee: Code(s): S83.241A - Other tear of medial meniscus, current injury, right knee, initial encounter Category: Medical (4) Chronic pain of right knee: Code(s): M25.561 - Pain in right knee; G89.29 - Other chronic pain Category: Medical Plan 1. Sprain versus partial MCL tear of right knee 2. Lateral meniscus tear of right knee 3. Medial meniscus tear right knee Patient has no complaints at this time Patient is not experiencing any pain or limitations with her range of motion ritter patient reports that her exercise classes she has been taking in the [facility] have helped tremendously Due to this, I do not feel any acute intervention is indicated in this patient at this time Patient is amenable to this plan Patient will follow-up p.r.n. with any acute concerns Coding Level of Care Code New Pt Level 3 (44880) Diagnoses Tear of medial collateral ligament of right knee S83.411A Tear of lateral meniscus of right knee S83.281A Tear of medial meniscus of right knee S83.241A Chronic pain of right knee M25.561; G89.29
== END 2024-06-01 13:32 | disposition home or self-care (01) ==
PROVIDERS: PCP Internal Medicine
DX: S83.411A Sprain of medial collateral ligament of right knee, initial encounter (principal); S83.281A Other tear of lateral meniscus, current injury, right knee, initial encounter; S83.241A Other tear of medial meniscus, current injury, right knee, initial encounter; M25.561 Pain in right knee; G89.29 Other chronic pain
CPT/HCPCS: 99203

== ENCOUNTER → 2024-06-01 12:56 | Outpatient (BNVA) | payer MEDICARE, OTHER, SELFPAY | PROVIDERS: PCP Internal Medicine | DX: S83.411A Sprain of medial collateral ligament of right knee, initial encounter (principal); S83.281A Other tear of lateral meniscus, current injury, right knee, initial encounter; S83.241A Other tear of medial meniscus, current injury, right knee, initial encounter; G89.29 Other chronic pain; X58.XXXA Exposure to other specified factors, initial encounter; Y93.9 Activity, unspecified; Y92.9 Unspecified place or not applicable; Y99.9 Unspecified external cause status | CPT/HCPCS: 99202 ==

== ENCOUNTER 2024-10-29 10:31 | Outpatient (REF) | payer MEDICARE, OTHER, SELFPAY ==
--- OUTSIDE RECORDS SUMMARY | 2024-10-29 10:56 | XMS_ITS ---
Author Organization [facility] Address [address] [place] [address] Care Team Providers Care Kitchen Aide Name Role Phone Courtney MILLER, Larissa Primary Care Provider Nasir Bradley Unavailable [phone] REASON FOR VISIT screening,hx polyps, fam hx colon ca PROBLEMS Problem Type ICD Code Onset Dates Problem Status W/U Status Risk SNOMED Code Notes Problem History of adenomatous polyp of colon (Z86.010) Active confirmed History of adenomatous polyp of colon (959258404) Problem Diverticulosis of colon (K57.30) Active confirmed Diverticulosi s of colon (386840327) Encounters Encounter Location Date Provider Diagnosis [facility] [place] Outpatient [address], [place] [id number] 07/05/2023 Nasir Perez Colon cancer scree [place] Z12.11 ; History of adenomatous polyp of colon Z86.010 ; Family history of colon cancer Z80.0 ; Diverticulosis of colon K57.30 and Internal hemorrhoids K64.8 ASSESSMENTS Encounter Date Diagnosis Assessment Notes Treatment Notes Treatment Clinical Notes 07/05/2023 Colon cancer screening (ICD-10 - Z12.11) 07/05/2023 History of adenomatous polyp of colon (ICD-10 - Z86.010) 07/05/2023 Family history of colon cancer (ICD-10 - Z80.0) 07/05/2023 Diverticulosis of colon (ICD-10 - K57.30) 07/05/2023 Internal hemorrhoids (ICD-10 - K64.8) PLAN OF TREATMENT No Information
--- OUTSIDE RECORDS SUMMARY | 2024-10-29 10:56 | XMS_ITS | Patient Health Record ---
Author Organization [facility] Address [address] [place] [address] Care Team Providers Care Program Control Analyst Name Role Phone Courtney MILLER, Larissa Primary Care Provider Nasir Bradley Unavailable [phone] ALLERGIES No Known Allergies REASON FOR REFERRAL No Information MEDICATIONS Medication SIG (Take, Route, Frequency, Duration) Notes Start Date End Date Status Vitamin D3 250 MCG (43773 UT) as directed Orally Active Flax Seed Oil Active Lisinopril 2.5 MG 1 tablet Orally Once a day Active Centrum Silver 50+Women - as directed Orally Active Rogaine Active Tretinoin Active Clobetasol Propionate Active Ciclopirox Active Prebiotic Product Ac tive Probiotic Active SOCIAL HISTORY Sex Assigned At : Social History Observation Description Sex Assigned At Unknown Alcohol Screen Question Answer Notes Did you have a drink contain ing alcohol in the past year? Yes How often did you have a dri nk containing alcohol in the past year? 2 to 3 times a week (3 points) How many drinks did you have on a typical day when you were drinking in the past year? 1 or 2 drinks (0 point) How often did you have 6 or more drinks on one occasion in the past year? Never (0 point) Points 3 Interpretation Positive PROBLEMS Problem Type ICD Code Onset Dates Problem Status W/U Status Risk SNOMED Code Notes Problem Encounter for screening for malignant neoplasm of colon (Z12.11) Active confirmed 608554225 Problem History of adenomatous polyp of colon (Z86.010) Active confirmed History of adenomatous polyp of colon (852389640) Problem Family history of colon cancer (Z80.0) Active confirmed 621108296 Problem Hx of adenomatous colonic polyps (Z86.010) Active confirmed 855241625 Problem Pre-procedural examination (Z01.818) Active confirmed 288105682566280 Problem Diverticulosis of colon (K57.30) Active confirmed Diverticulosi s of colon (932922101) PLAN OF TREATMENT Future Test Test Name Order Date COLONOSCOPY 09/10/2012 COLONOSCOPY 05/15/2018 COLONOSCOPY 04/16/2023 Insurance Providers Payer Name Payer Address Payer Phone Subscriber Number Group Number Insured Name Patient Relationship to Insured Coverage Start Date Coverage End Date MEDICARE OF [place] [address] [place] [address] [id number] AMBER LAI Self - patient is the insured [facility] Attn Claims [address] [place] [address] [phone] [id number] AMBER LAI Self - patient is the insured MEDICAL (GENERAL) HISTORY Medical History History ICD Code HTN Denies CT,DM,CVA,Lung disease,renal dise ase Colonoscopy in 2007 small tu bular adenomas removed; neg. colonoscopy in 01/2013--diverticulosis and small internal hemorrhoids Colonoscopy in 05/2018 with a small tubul ar adenoma Surgical History Surgery Date(Month/Year) Appendectomy
--- OUTSIDE RECORDS SUMMARY | 2024-10-29 10:56 | XMS_ITS ---
Author Organization [facility] Address [address] [place] [address] Care Team Providers Care Investigator Name Role Phone Courtney MILLER, Larissa Primary Care Provider Nasir Bradley [phone] REASON FOR VISIT screening, hx polyps, fam hx colon ca Encounters Encounter Location Date Provider Diagnosis [facility] [place] [address] [place] [id number] 06/14/2023 Nasir Perez PLAN OF TREATMENT No Information
== END 2024-10-29 10:32 | disposition home or self-care (01) ==
LOC: HO.MAMMO 10:31
PROVIDERS: PCP Internal Medicine; Visit Provider Internal Medicine
DX: Z12.31 Encounter for screening mammogram for malignant neoplasm of breast (principal)
CPT/HCPCS: 77063; 77067

== ENCOUNTER → 2024-10-29 11:00 | Outpatient (BNV) | payer MEDICARE, OTHER, SELFPAY | PROVIDERS: PCP Internal Medicine; Visit Provider Internal Medicine | DX: Z12.31 Encounter for screening mammogram for malignant neoplasm of breast (principal) | CPT/HCPCS: 77063; 77067 ==

== ENCOUNTER 2024-11-11 09:14 | Outpatient (REF) | payer MEDICARE, OTHER, SELFPAY ==
[2024-11-11 10:33] LABS: Alanine Aminotransferase 22 U/L (0-31); Anion Gap 11 (12-20); Aspartate Amino Transferase 23 U/L (5-31); Blood Urea Nitrogen 14 mg/dL (9-16); Calcium 9.4 mg/dL (8.4-10.2); Carbon Dioxide 27 mmol/L (22-29); Chloride 107 mmol/L (96-108); Cholesterol 204 mg/dL (<200); Estimated Glomerular Filt Rate > 60; Glucose Fasting 95 mg/dL (60-99); HDL Cholesterol 59 mg/dL (>40); LDL Cholesterol Calculated 119 mg/dL (<100); Potassium 4.6 mmol/L (3.3-5.1); Sodium 140 mmol/L (135-145); Triglycerides 131 mg/dL (<150)
[2024-11-11 10:36] LABS: Vitamin D 25-OH Total 43.2 ng/mL (>30)
== END 2024-11-11 09:15 | disposition home or self-care (01) ==
LOC: HO.HMGCLDS 09:14
PROVIDERS: PCP Internal Medicine; Visit Provider Internal Medicine
DX: M85.88 Other specified disorders of bone density and structure, other site (principal); I10 Essential (primary) hypertension; Z78.0 Asymptomatic menopausal state
CPT/HCPCS: 36415; 80048; 80061; 82306; 84450; 84460

== ENCOUNTER 2024-11-19 09:14 | Outpatient (AMB) | payer MEDICARE, OTHER, SELFPAY ==
--- NOTE | 2024-11-19 09:46 | AM.OFFVISMDC ---
Intake Vital Signs 11/19/24 10:09 Height 5 ft 6 in Weight 185 lb BMI 29.9 BP 130/82 Blood Pressure Location Rt brachial Position Sitting Respiration 14 Pulse 69 Pulse Source Pulse Oximeter Temp 97.7 F Temp Source Oral Pulse Oximetry (%) 98 Oxygen Delivery Method Room Air Intake Visit Reasons: SWV Intake Note: Pt is here today for her SWV Allergies No Known Allergies Allergy (Verified 11/19/24 10:16) Medication List - Last Reconciled 11/19/24 by Larissa Valdez MD Bacillus coagulans (Digestive Advantage Probiotics-Prebiotic) cells PO cholecalciferol (vitamin D3) 25 mcg PO DAILY flaxseed mg PO lisinopril 2.5 mg PO DAILY minoxidil 5% (Rogaine) ea topical rxoquccd-xrd-ynhn-FA-vit K-lut 8 mg iron-400 mcg-50 mcg (Centrum Silver Women) 1 tab PO DAILY HPI SWV HPI Details SWV ? 69 y ear old lady with hypertension, oste openia lumbar spin e, obstructive sle ep apnea, presents for her subseque nt ? Annual Welln ess Visit.? She is up-to-date with h er screening mammo gram done 10/29/2024 with negative fin ding. She no luz elena lisa gets cervical screening, last Pa p smear was done i n 2013 with normal findings, and had a bone density sc an done 09/18/2022 , which showed pre sence of osteopeni a in lumbar spine, normal in left fe moral neck and lef t femur, due again this year . Sh e had a colonoscop y done 07/05/[address] Perez with no polyps removed, s howed presence of sigmoid diverticul osis and internal hemorrhoids, but h as history of tubu lar adenoma , due for a repeat colon oscopy in 2027. She is up-to-d ate with all her v accinations but yoder s not yet had her RSV vaccine. Does not want to get C OVID booster She had a normal f asting lipid panel and fasting blood sugar check done 11/11/2024 ? Medical / Soci al History Reviewe d? Past Medical Hi story ?Yes . ? Circl e of Care / Care Team list updated ?Yes . ? Surgical/Hos pitalization Hist ory ?Yes . ? Current Medications (incl uding OTC and supp lements) ?Yes . ? Fam russ History ?Yes . ? Tobacco Control form ?Yes . ? AUDIT-C (Alcohol use) for m ?Yes . ? Illicit d rug use in Social History ?Yes . ? Cur rent diagnosis of depression? ?No ? Ap propriate PHQ2/PHQ 9 completed ?Yes . ? Data entered by ? Machine Repairer and reviewed by kacie rose ? Fal l Risk ? Fa ll History? Have you had any falls with injury in e past year? ?No . ? Have you had two o r more falls in he past year? ?No . ? Fall Risk Assessm ent: ?No falls in the past year . ? HRA filled out by the sabina magaña, reviewed by Kiki narvaez and scanned . ?SWV ? Balance? Romb erg ?negative ? Tandem walk ?Yes . ? Walk an d Turn ?Yes . ? Rise f rom sit to stand ?Yes . ?Vis ion? Corrective lens ?Yes ? Vision screen ? Up-to-date, she sees Dr. Layton yearly ?He aring? Whisper test ?pass . ?Wr itten Plan?Comple shanti. See Patient Documents.? PFSH Medical History (Updated 11/19/24 @ 10:52 by Larissa Valdez MD) History of adenomatous polyp of colon History of meniscal tear Chronic pain of right knee HTN (hypertension) Hair loss disorder Insomnia SHARON (obstructive sleep apnea) Osteopenia of lumbar spine Arthritis Sleep apnea Hx of renal calculi Lumbago syndrome Menopause Essential hypertension Surgical History S/P LASIK surgery H/O cataract extraction Hx of lithotripsy H/O colonoscopy Hx of appendectomy Social History Housing: House Alcohol intake: current Alcohol intake frequency: holidays/special occasions only Patient Tobacco Use Status: Never used Tobacco e-Cigarette/Vaping Use: Never Used Second Hand Smoke Exposure: No service: No Current occupational status: retired Cognitive needs: No Hearing needs: No Vision needs: No Questionnaire Medicare Wellness Checkup [age] What gender do you identify with?: female During the past 4 weeks, how much have you been bothered by emotional problems such as feeling anxious, depressed, irritable, sad or downhearted, and blue?: not at all During the past 4 weeks, has your physical & emotional health limited your social activities with family, friends, neighbors, or groups?: not at all During the past 4 weeks, how much bodily pain have you generally had?: no pain During the past 4 weeks, was someone available to help you if you needed & wanted help?: yes, as much as I wanted During the past 4 weeks, what was the hardest physical activity you could do for at least 2 minutes?: moderate Can you get to places out of walking distance without help? (For eg., can you travel alone on buses, taxis or drive your car?): Yes Can you go shopping for groceries or clothes without someone's help?: Yes Can you prepare your own meals?: Yes Can you do your housework without help?: Yes Because of any health problems, do you need the help of another person with your personal care needs such as eating, bathing, dressing or getting around the house?: No Can you handle your own money without help?: Yes During the past 4 weeks, how would you rate your health in general?: good During the past 4 weeks how have things been going for you?: very well; could hardly better Are you having difficulties driving your car?: no Do you always fasten your seat belt when you are in a car?: yes, usually During past 4 weeks, have you been bothered by the following: never: Falling or dizzy when standing up, Sexual problems?, Trouble eating well?, Teeth or denture problems? and Problems using the telephone? and sometimes: Tiredness or fatigue? Have you fallen 2 or more times in the past year?: No Are you afraid of falling?: No Are you a smoker?: no During the past 4 weeks, how many drinks of wine, beer, or other alcoholic beverages did you have?: 2-5 drinks per week Do you exercise for about 20 minutes 3 or more times a week?: yes, most of the time Have you been given information to help with the following?: no: Hazards in your house that might hurt you? and no: Keeping track of your medications? How often do you have trouble taking medicines the way you have been told to take them?: I always take medicine as prescribed How confident are you that you can control & manage most of your health problems?: very confident What is your race?: White Mini Mental State Exam (MMSE) Orientation What is the (year) (season) (date) (day) (month)?: year (2024), season (Winter), date (11/19/2024), day () and month (October) Where are we (state) (county) (town or city) (hospital) (floor)?: state ([place]), [facility] ([place]), town or city ([place]) and hospital/clinic ([facility]) Score Score: 9 Activity of Daily Living Bathing - sponge bath, tub bath or shower: receives no assistance (gets in/out by self, if usual bathing means Dressing - getting clothes from closets & drawers, including inner/outer garments & fasteners.: gets clothes & gets completely dressed without help Toileting - going to the 'toilet room' for urine/bowel elimination & cleaning self/arranging clothes: goes to toilet room, cleans self, arranges clothes without help Transfer: moves in & out of bed and chair without help (may use support object) Continence: controls urination/bowel movements completely by self Feeding: feeds self without help Total Score: 0 Information obtained from: patient Using telephone: independent Traveling: independent Shopping: independent Preparing meals: independent Housework: independent Taking medicine: independent Managing money: independent PHQ-9 Over the last 2 weeks, how often have you been bothered by any of the following problems? 1. Little interest or pleasure in doing things: not at all 2. Feeling down, depressed, or hopeless: not at all 3. Trouble falling or staying asleep, or sleeping too much: not at all 4. Feeling tired or having little energy: several days 5. Poor appetite or overeating: not at all 6. Feeling bad about yourself - or that you are a failure or have let yourself or your family down: not at all 7. Trouble concentrating on things, such as reading the newspaper or watching television: not at all 8. Moving or speaking so slowly that other people could have noticed. Or the opposite - being so fidgety or restless that you have been moving around a lot more than usual: not at all 9. Thoughts that you would be better off or of hurting yourself in some way: not at all Total score: 1 Depression Screening Interpretation: Negative Depression Screening Done: Yes 79144 - PHQ-9 Billing: Yes Source: Developed by Drs. Nasir Horton, Simona Damon, Domenico Mcintosh and colleagues, with an educational rai from [employer]. Physical Exam Vital Signs: Last Vital Signs Temp 97.7 F 11/19/24 10:09 Pulse 69 11/19/24 10:09 Resp 14 11/19/24 10:09 BP 130/82 11/19/24 10:09 Pulse Ox 98 11/19/24 10:09 Oxygen Delivery Method Room Air 11/19/24 10:09 BMI result Body Mass Index 29.9 Results Reviewed Results Reviewed: Name: Madelyn Graham Age/Sex: 69/F : 1955 Unit#: [id number] Attend Dr: Larissa Valdez MD Re11/11/24 Status: DEP REF Location: [facility] Disch: SPEC : [id number] THERESA: 11/11/24 STATUS: COMP REQ : [id number] RECD: 11/11/[address]: Larissa Valdez MD COMP: 11/11/24 ENTERED: 11/11/[address]: ORDERED: Met Prof Fast, AST, ALT, Lipid Panel, Vitamin D 25-OH Test Result Flag Reference Sodium 140 135-145 mmol/L Potassium 4.6 3.3-5.1 mmol/L CL 107 96-108 mmol/L CO2 27 22-29 mmol/L Gap 11 L 12-20 BUN 14 9-16 mg/dL Creat 0.73 0.5-1.4 mg/dL eGFR > 60 Chronic Kidney Disease: Estimated GFR < 60 mL/min/1.73m2 Severe Kidney Disease: Estimated GFR < 15 mL/min/1.73m2 FBS 95 60-99 mg/dL CA 9.4 8.4-10.2 mg/dL AST (GOT) 23 5-31 U/L ALT (GPT) 22 0-31 U/L Triglyceride 131 <150 mg/dL Desirable Triglyceride: less than 150 mg/dL Borderline High Triglyceride 150-199 mg/dL High Triglyceride: 200-499 mg/dL Very High Triglyceride: greater than or equal to 5OO mg/dL Cholesterol 204 H <200 mg/dL Desirable Cholesterol: less than 200 mg/dL Borderline High Cholesterol: 200-239 mg/dL High Cholesterol: greater than 239 mg/dL LDL Calculated 119 H <100 mg/dL Desirable LDL: less than 100 mg/dL Near Optimal/Above Optimal LDL: 110-129 mg/dL Borderline High LDL: 130-159 mg/dL High LDL: 160-189 mg/dL Very High LDL: greater than or equal to 190 mg/dL HDL 59 >40 mg/dL Desirable HDL: greater than 40 mg/dL Note: This HDL assay may give artificially low results in patients with liver disease. Vit D 25-OH Tot 43.2 >30 ng/mL Health Based Reference Values* < 20 ng/mL Deficient 20-30 ng/mL Insufficient > 30 ng/mL Sufficient Assessment & Plan Assessment & Plan (1) Encounter for subsequent annual wellness visit (AWV) in Medicare patient: Code(s): Z00.00 - Encounter for general adult medical examination without abnormal findings Plan: Medical wellness checklist reviewe, discussed with patient and completed. Copy given. Up-to-date with all her vaccinations, and screening tests, reminded to get her RSV vaccination, and repeat colonoscopy in [address] Perez. (2) Osteopenia of lumbar spine: Comment: Last bone density 2018 Code(s): M85.88 - Other specified disorders of bone density and structure, other site Plan: Ordered a repeat bone density scan to be done later this year in August. Continued on vitamin-D 3 supplements, regular exercise, goes [facility] her exercise per (3) SHARON (obstructive sleep apnea): Code(s): G47.33 - Obstructive sleep apnea (adult) (pediatric) Plan: Compliant with CPAP, followed by Dr. Perez (4) Essential hypertension: Code(s): I10 - Essential (primary) hypertension Plan: Continue on lisinopril, refills (5) History of adenomatous polyp of colon: Code(s): Z86.0101 - Personal history of adenomatous and serrated colon polyps Plan: Up-to-date with screening colonoscopy done by Dr. Perez in 2022, due for recheck in 2019 (6) Advanced directives, counseling/discussion: Code(s): Z71.89 - Other specified counseling Plan: Initiated the conversation about Advanced Directives. Advanced Directives help patients prepare for current and future decisions about their medical treatment and place of care. Discussed with patient that it is a process where a patients current condition and prognosis are reviewed, their wishes for information regarding their illness are elicited, and likely medical dilemmas are presented and options discussed. Healthcare proxy and MOLST form completed. These formscan be amended as needed, reviewed yearly and make changes as needed. Repeat bone density scan due this year, ordered Orders: Orders XR DEXA axial skeleton Today M85.88 - Other specified disorders of bone density and structure, other site, Z78.0 - Asymptomatic menopausal state Medications: Refilled lisinopril 2.5 mg PO DAILY 90 tabs 4RF I10 - Essential (primary) hypertension Quality Reporting (2019) Depression/Bipolar (159/160/161/177) PHQ-9: Total score: 1 Coding Level of Care Code Medicare Subsequent (G0439) Diagnoses Encounter for subsequent annual wellness visit (AWV) in Medicare patient Z00.00 Osteopenia of lumbar spine M85.88 SHARON (obstructive sleep apnea) G47.33 Essential hypertension I10 History of adenomatous polyp of colon Z86.0101 Advanced directives, counseling/discussion Z71.89 CPT Codes Advance Care Planning - Time spent: 16-45 minutes ([id number]) Additional Codes PHQ-9 - 49868 - PHQ-9 Billing: Yes ([id number]) Advance Care Planning Advance Care Planning discussion: Completed/Scanned Date of discussion: 11/19/24 Who was present: Patient Forms completed: Health Care Proxy (Done today) and MOLST (Already completed in 2022) Time spent: 16-45 minutes Actual minutes spent: 3
[2024-11-19 10:09] VITALS: BP 130/82; PULSE 69; RESP 14; TEMP 36.5; O2SAT 98; BMI 29.9
== END 2024-11-19 10:48 | disposition home or self-care (01) ==
PROVIDERS: PCP Internal Medicine; Visit Provider Internal Medicine
DX: Z00.00 Encounter for general adult medical examination without abnormal findings (principal); M85.88 Other specified disorders of bone density and structure, other site; G47.33 Obstructive sleep apnea (adult) (pediatric); I10 Essential (primary) hypertension; Z86.0101 Personal history of adenomatous and serrated colon polyps; Z71.89 Other specified counseling

== ENCOUNTER → 2024-11-19 09:14 | Outpatient (BNVA) | payer MEDICARE, OTHER, SELFPAY | PROVIDERS: PCP Internal Medicine; Visit Provider Internal Medicine | DX: Z00.00 Encounter for general adult medical examination without abnormal findings (principal); M85.88 Other specified disorders of bone density and structure, other site; G47.33 Obstructive sleep apnea (adult) (pediatric); I10 Essential (primary) hypertension; Z86.0101 Personal history of adenomatous and serrated colon polyps; Z71.89 Other specified counseling | CPT/HCPCS: 96127 ==

== ENCOUNTER 2025-05-06 13:22 | Outpatient (AMB) | payer MEDICARE, OTHER, SELFPAY ==
--- OUTSIDE RECORDS SUMMARY | 2025-05-06 13:25 | XMS_ITS | Patient Health Record ---
Author Organization [facility] Address [address] [place] [address] Care Team Providers Care Physician Assistant Surgery Name Role Phone Courtney MILLER, Larissa Primary Care Provider Nasir Bradley Unavailable [phone] Allergies No Known Allergies Reason For Referral No Information Medications Medication SIG (Take, Route, Frequency, Duration) Notes Start Date End Date Status Vitamin D3 250 MCG (58170 UT) as directed Orally Active Flax Seed Oil Active Lisinopril 2.5 MG 1 tablet Orally Once a day Active Centrum Silver 50+Women - as directed Orally Active Rogaine Active Tretinoin Active Clobetasol Propionate Active Ciclopirox Active Prebiotic Product Ac tive Probiotic Active Social History Alcohol Screen Question Answer Notes Did you [...] Never (0 point) Points 3 Interpretation Positive Section Notes: Nonsmoker, denies sig. alcoh ol Nonsmoker, denies sig. alcoh ol Nonsmoker, denies sig. alcoh ol Nonsmoker, denies sig. alcoh ol Problems Problem Type SNOMED Code ICD Code Onset Dates Problem Status W/U Status Risk Notes Problem [id number] Encounter for screening for malignant neoplasm of colon (Z12.11) Active confirmed Problem History of adenomatous polyp of colon (095736911) History of adenomatous polyp of colon (Z86.010) Active confirmed Problem 706999067 Family history o f colon cancer (Z80.0) Active confirmed Problem 536531491 Hx of adenomatou s colonic polyps (Z86.010) Active confirmed Problem 497776082753912 Pre-procedural examination (Z01.818) Active confirmed Problem Diverticulosis of colon (108660575) Diverticulosis of colon (K57.30) Active confirmed Plan Of Treatment Future Test Test Name Order Date COLONOSCOPY 09/10/2012 COLONOSCOPY 05/15/2018 COLONOSCOPY 04/16/2023 Insurance Providers Payer Name Payer Address Payer Phone Subscriber Number Group Number Insured Name Patient Relationship to Insured Coverage Start Date Coverage End Date MEDICARE OF [place] [address] [place] [address] [phone] [id number] AMBER LAI Self - patient is the insured [facility] Att[facility] Claims [address] [place] [address] [id number] AMBER LAI Self - patient is the insured Medical (General) History Medical History History ICD Code HTN Denies [place],DM,CVA,Lung disease,renal dise ase Colonoscopy in 2007 small tu bular adenomas removed; neg. colonoscopy in 01/2013--diverticulosis and small internal hemorrhoids Colonoscopy in 05/2018 with a small tubul ar adenoma Surgical History Surgery Date(Month/Year) Appendectomy
--- OUTSIDE RECORDS SUMMARY | 2025-05-06 13:25 | XMS_ITS | Patient Health Record ---
Author Organization [facility] Address [address] [place] [address] Care Team Providers Care Steam Frame Operator Name Role Phone Courtney MILLER, Larissa Pablo Primary Care Provider Un available Manav Tran Unavailable [phone] Reason For Referral No Information Medications Medication SIG (Take, Route, Frequency, Duration) Notes Start Date End Date Status Flaxseed Oil 1000 MG Orally Active Lisinopril 0.5 Orally Once a day Active Centrum Silver 50+Women Active Vitamin D3 2000 UNIT 1 capsule Orally On ce a day Active Piroxicam 20 MG 1 capsule with food Orally Once a day; Duration: 30 day(s) 07/12/2014 Not-Taking Calcium + D Not-Taki ng Social History Tobacco Use: Social History Observation Description Date Details (start date - stop date) Never Smoker NA - NA Tobacco Use/Smoking Question Answer Notes Are you a: nonsmoker Additional Findings: Tobacco Non-User Current no n-smoker Alcohol Screen Question Answer Notes Did you have a drink containing alcohol in the p ast year? Yes Points 0 Interpretation Negative Tobacco use other than smoking: Question Answer Notes Are you an other tobacco user? No Problems Problem Type SNOMED Code ICD Code Onset Dates Problem Status W/U Status Risk Notes Problem Localized, primary osteoarthritis of the ankle and/or foot (002794037) Primary osteoarthrit is, right ankle and foot (M19.071) Active confirmed Plan Of Treatment Pending Test Test Name Order Date X ray : Foot, right 2V 07/12/2014 X ray : Foot, left 3V 05/21/2018 42093- Removal of Foreign Body, Subcut 0 05/21/2018 [id number] TENDON SHEATH/LIGAMENT 1 12/15/201301428,[id number] TENDON SHEATH/LIGAMENT 0 11/11/[id number] TENDON SHEATH/LIGAMENT 0 01/05/2015 Insurance Providers Payer Name Payer Address Payer Phone Subscriber Number Group Number Insured Name Patient Relationship to Insured Coverage Start Date Coverage End Date [facility] [address] [place] [address] [id number] Madelyn Graham Self - patient is the insured 6 [facility] [address] [place] [address] [id number] Madelyn Graham Self - patient is the insured 1 Medical (General) History Medical History History ICD Code Broken bones High blood pressure Measles Mumps Chicken pox Sleep apnia Surgical History Surgery Date(Month/Year) appendectomy 1958
--- NOTE | 2025-05-06 13:30 | MHC.OFFVIS ---
Vital Signs 05/06/25 13:32 Height 5 ft 6 in Weight 187 lb 6.287 oz BMI 30.2 BP 120/70 Blood Pressure Location Lt brachial Position Sitting Pulse 75 Pulse Source Pulse Oximeter Pulse Oximetry (%) 97 Oxygen Delivery Method Room Air Intake Visit Reasons: Sleep apnea Intake Note: pt is here for follow up and states she is feeling good, Allergies No Known Allergies Allergy (Verified 05/06/25 13:49) Medication List - Last Reconciled 05/06/25 by Vianey Perez MD Bacillus coagulans (Digestive Advantage Probiotics-Prebiotic) cells PO cholecalciferol (vitamin D3) 25 mcg PO DAILY flaxseed mg PO lisinopril 2.5 mg PO DAILY minoxidil 5% (Rogaine) ea topical byzvnjkq-uzr-annc-FA-vit K-lut 8 mg iron-400 mcg-50 mcg (Centrum Silver Women) 1 tab PO DAILY Do you need a note to return to daycare/school/sports/work: No HPI HPI Sleep apnea: Details: AMBER IS 69 YEARS OLD FEMALE, JUST MODERATELY OBESE AND ALSO HAS PROMINENT RETROGNATHIA OF THE LOWER JAW THE MAIN CAUSE OF HER OBSTRUCTIVE SLEEP APNEA. SHE HAS BEEN USING CPAP REGULARLY FOR THE PAST MANY YEARS, WITH PRESSURE OF 10 CM, AND FULLFACE MASK. HER COMPLIANCE HAS ALWAYS BEEN 100 % WHEN SHE SLEEPS GOOD. SHE DOES HAVE SOME IRRITATION OVER THE NOSE CAUSE BY THE MASK. SHE WANTS TO TRY AIR FIT F 40 MASK. ALSO SHE MAY BE GOING TO [facility] TO SEE HER SON WHO IS IN THE SERVICE, AND IS ANTICIPATING SOME ANXIETY, DUE TO WHICH SHE MAY NOT BE ABLE TO SLEEP WELL. SHE IS ASKING FOR A MILD SLEEP PROMOTING PILL. SHE TRIES TO KEEP HER WEIGHT UNDER CONTROL BUT LATELY HAS GAINED ABOUT 1 OR 2 LB. FORMERLY [facility], 1928–1983 Medical History (Updated 05/06/25 @ 13:57 by Viaeny Perez MD) Insomnia History of adenomatous polyp of colon History of meniscal tear Chronic pain of right knee HTN (hypertension) Hair loss disorder SHARON (obstructive sleep apnea) Osteopenia of lumbar spine Arthritis Sleep apnea Hx of renal calculi Lumbago syndrome Menopause Essential hypertension Surgical History S/P LASIK surgery H/O cataract extraction Hx of lithotripsy H/O colonoscopy Hx of appendectomy Social History Housing: House Alcohol intake: current Alcohol intake frequency: holidays/special occasions only Patient Tobacco Use Status: Never used Tobacco e-Cigarette/Vaping Use: Never Used Second Hand Smoke Exposure: No service: No Current occupational status: retired Cognitive needs: No Hearing needs: No Vision needs: No Review of Systems Const All systems reviewed & are unremarkable except as noted in HPI and below Eyes Reports no additional complaints ENT Reports no additional complaints Card Denies chest pain, Denies irregular heart rhythm, Denies leg edema and Denies dyspnea Resp Denies cough, Denies dyspnea, Denies stridor and Denies wheezing GI Reports no additional complaints Reports no additional complaints Musc Reports arthralgias (MILD OFF AND ON) Skin/Breast Reports system reviewed and no additional complaints, except as documented Neuro Reports no additional complaints Psych Reports no additional complaints Aller/Immun Denies wheezing Physical Exam Const General: healthy appearing, comfortable, no acute distress, alert and awake Orientation/consciousness: patient oriented x3 HEENT Head: Yes normal to inspection General nose exam: No nasal polyps present and No nasal discharge present Face and sinus: Yes sinuses nontender Mouth: oropharynx normal Teeth and gingiva: other (prominant Retroganthia of the lower jaw) Throat: Yes posterior oropharynx normal Eyes General: appearance normal, both eyes and all related structures Neck Neck: Yes normal visual inspection, Yes no lymphadenopathy, Yes trachea midline and Yes no JVD Thyroid: Thyroid normal Chest Chest palpation & inspection: normal inspection of the chest, normal palpation of entire chest wall and no tenderness Resp Effort & Inspection: normal respiratory effort Auscultation: clear to auscultation bilaterally, no crackles and no wheezes Cardio Palpation: normal PMI Rate: regular rate Rhythm: regular rhythm Heart sounds: no gallops and no murmurs Peripheral pulses: Peripheral pulses 2+ throughout GI Palpation (GI): Soft to palpation, nontender, No hepatosplenomegaly present and no masses Auscultation: normal bowel sounds Back/Spine/Pelvis Thoracic/Lumbar Spine: thoracic and lumbar spine normal to inspection Skin General skin exam: no rashes or lesions noted Neuro General: patient oriented x3 and no focal motor deficits Cranial nerves: Yes CN's II-XII intact bilaterally Extrem General: Yes normal to inspection, Yes no clubbing, cyanosis or edema and Yes no calf tenderness Psych Appearance: grossly normal and well kempt Speech and movement: Normal speech and movement present Results Reviewed Results Reviewed: COMPLIANCE REPORT FOR THE LAST 30 NIGHTS SHOWS THAT SHE HAS USED 100% OF THE NIGHTS. AVERAGE USE IT PER NIGHT 8 HOURS 43 MINUTES. THERE IS MINIMAL AIR LEAK. RESIDUAL AHI 1.5 Assessment & Plan Assessment & Plan (1) SHARON (obstructive sleep apnea): Comment: LONGSTANDING HISTORY OF OBSTRUCTIVE SLEEP APNEA. SHE IS 100% COMPLIANT AND BENEFITS FROM THE USE OF CPAP HAS MILD IRRITATION OF THE NOSE FROM CURRENT FULLFACE MASK Code(s): G47.33 - Obstructive sleep apnea (adult) (pediatric) Category: Medical Plan: COMMENDED FOR GOOD COMPLIANCE AND ADVISED TO CONTINUE USING THE CPAP EVERY NIGHT. WILL REQUEST MASK CHANGED TO AIR FIT F 40 BRAND . (2) Insomnia: Comment: PATIENT IS HAVING SOME HARD TIME IN FALLING ASLEEP DUE TO ANTICIPATED ANXIETY CAUSE BY HER PLAN TO FLY TO [place] TO SPEND SOME TIME WITH HER SON WHO IS IN THE SERVICE AND WILL BE STATIONED IN [place] FOR A WHILE. Code(s): G47.00 - Insomnia, unspecified Category: Medical Plan: EXPLAINED ABOUT SLEEP HYGIENE, AND RELAXATION TECHNIQUE. I WILL SEND A SCRIPT FOR LORAZEPAM 0.5 MG TO TAKE 1 PILL AT NIGHT MAINLY TO RELIEVE HER ANXIETY. HE MAY TAKE 1 PILL BEFORE SHE BODES THE PLANE. THIS WILL NOT BE FOR LONG-TERM USE. Medications: New lorazepam 0.5 mg PO BEDTIME PRN 10 tabs 1RF anxiety/INSOMNIA 10 days Coding Level of Care Code Est Pt Level 3 (88147) Diagnoses SHARON (obstructive sleep apnea) G47.33 Insomnia G47.00
[2025-05-06 13:32] VITALS: BP 120/70; PULSE 75; O2SAT 97; BMI 30.2
== END 2025-05-06 16:24 | disposition home or self-care (01) ==
LOC: HO.HPS 13:23
PROVIDERS: PCP Internal Medicine; Visit Provider Internal Medicine
DX: G47.33 Obstructive sleep apnea (adult) (pediatric) (principal); G47.00 Insomnia, unspecified
CPT/HCPCS: 99213

== ENCOUNTER → 2025-05-06 13:22 | Outpatient (BNVA) | payer MEDICARE, OTHER, SELFPAY | PROVIDERS: PCP Internal Medicine; Visit Provider Internal Medicine | DX: G47.33 Obstructive sleep apnea (adult) (pediatric) (principal); G47.00 Insomnia, unspecified | CPT/HCPCS: 99212 ==